=== PATIENT | male | born 1955 | race Caucasian/White ===

== ENCOUNTER → 2016-08-03 | Outpatient (CLI) | payer BC ==
[~2016-08-03] MED LIST: AML5T PO; LISI-646 PO; LISIPOW PO; PANT40TA2 PO; TOPROL XL PO
[2016-08-03 07:32] LABS: Albumin 3.7 g/dL (3.4-5.0); BUN/Creatinine Ratio 15.5; Bilirubin, Total 0.6 mg/dL (0.2-1.0); Calcium 8.9 mg/dL (8.5-10.1); Total Protein 7.6 g/dL (6.4-8.2)
== END | disposition home or self-care (01) ==
LOC: LAB 06:55
DX: E78.4 Other hyperlipidemia (principal)
CPT/HCPCS: 36415; 80053; 80061

== ENCOUNTER → 2016-08-03 | Outpatient (CLI) | payer BC | END | disposition home or self-care (01) | LOC: LAB 10:00 | PROVIDERS: ATTEND Physician Assistant | DX: D22.5 Melanocytic nevi of trunk (principal) ==

== ENCOUNTER → 2016-11-30 | Outpatient (CLI) | payer BC ==
[2016-11-30 08:56] LABS: Basophils # (auto) 0 uL; Basophils % (auto) 0.3 % (0.0-2.0); Eosinophils # (auto) 0.1 uL; Eosinophils % (auto) 1.8 % (0.0-7.0); Hematocrit 47.9 % (41.0-53.0); Hemoglobin 16.7 g/dL (13.5-17.5); Lymphocytes # (auto) 1.6 uL; Lymphocytes % (auto) 32.8 % (10.0-50.0); Mean Corpuscular Hemoglobin 29.2 pg (28.0-32.0); Mean Corpuscular Hgb Conc. 34.8 g/dL (32.0-36.0); Mean Corpuscular Volume 83.9 fL (80.0-100.0); Mean Platelet Volume 6.9 fL (7.4-10.4); Monocytes # (auto) 0.4 uL; Monocytes % (auto) 7.8 % (0.0-12.0); Neutrophils # (auto) 2.9 uL; Neutrophils % (auto) 57.3 % (37.0-80.0); Platelet Count (auto) 280 10^3/uL (140-450); Red Cell Distribution Width 14.1 % (11.6-16.0)
[2016-11-30 09:12] LABS: Urine Bilirubin Negative (Negative); Urine Color Yellow (Yellow); Urine Glucose Normal (Normal); Urine Ketone Negative (Negative); Urine Nitrite Negative (Negative); Urine RBC 2 /hpf (0 - 3); Urine Urobilinogen Normal (Negative); Urine pH 5.5 (5.0-8.0)
[2016-11-30 09:26] LABS: Urine Blood 1+ /uL (Negative)
[2016-11-30 10:28] LABS: Albumin 3.8 g/dL (3.4-5.0); BUN/Creatinine Ratio 16.8; Bilirubin, Total 0.4 mg/dL (0.2-1.0); Calcium 9.1 mg/dL (8.5-10.1); Potassium 3.7 mmol/L (3.5-5.1); Total Protein 7.6 g/dL (6.4-8.2)
== END | disposition home or self-care (01) ==
LOC: LAB 08:26
DX: I10 Essential (primary) hypertension (principal); R73.09 Other abnormal glucose; N40.0 Benign prostatic hyperplasia without lower urinary tract symptoms; Z86.010 Personal history of colon polyps
CPT/HCPCS: 36415; 80053; 80061; 81001; 83036; 84153; 84443; 85025

== ENCOUNTER → 2016-12-03 | Outpatient (CLI) | payer BC | END | disposition home or self-care (01) | LOC: LAB 09:38 | DX: R73.09 Other abnormal glucose (principal); I10 Essential (primary) hypertension; N40.0 Benign prostatic hyperplasia without lower urinary tract symptoms; Z86.010 Personal history of colon polyps | CPT/HCPCS: 82270 ==

== ENCOUNTER 2017-06-16 17:33 | Inpatient (IN) | payer BC ==
[~2017-06-16] VITALS: Ht 190.5 cm; Wt 124.8 kg
[2017-06-16] MEDS ORDERED: NITROGLYCERIN 0.4 MG SL TAB SL ONE ×2 (17:39→18:00)
[2017-06-16] MEDS ORDERED: LORazepam 0.5 MG TAB ONE (17:40)
[2017-06-16] MEDS ORDERED: ASPirin 325 MG TAB ONE (17:40)
[2017-06-16] MEDS ORDERED: SODIUM CHLORIDE 0.9% 1,000 ML IV ONE (17:49)
[2017-06-16] MEDS ORDERED: ASPirin 325 MG TAB PO ONE (18:00)
[2017-06-16] MEDS ORDERED: LORazepam 0.5 MG TAB PO ONE (18:00)
[2017-06-16] MEDS ORDERED: ONDANSETRON HCL 4 MG/2 ML VIAL IV ONE (18:00)
[2017-06-16] MEDS ORDERED: MORPHINE SULFATE 4 MG/ML SYRG IV ONE (18:00)
[2017-06-16 18:49] LABS: INR 0.98 (0.9-1.15); Partial Thromboplastin Time 24.6 sec (22.64-33.71); Prothrombin Time 10.7 sec (9.37-12.3)
[2017-06-16 18:54] LABS: BUN/Creatinine Ratio 14.4; Bilirubin, Total 0.5 mg/dL (0.2-1.0); Calcium 8.9 mg/dL (8.5-10.1); Potassium 3.7 mmol/L (3.5-5.1); Total Protein 8.3 g/dL (6.4-8.2)
[2017-06-16 19:21] LABS: Basophils # (auto) 0 uL; Basophils % (auto) 0.5 % (0.0-2.0); Eosinophils # (auto) 0.1 uL; Hemoglobin 14.8 g/dL (13.5-17.5); Lymphocytes # (auto) 1.3 uL; Mean Corpuscular Hgb Conc. 33.9 g/dL (32.0-36.0); Monocytes # (auto) 0.5 uL
[2017-06-16 19:41] LABS: Hematocrit 43.6 % (41.0-53.0); Mean Corpuscular Volume 85.5 fL (80.0-100.0); Monocytes % (auto) 7.8 % (0.0-12.0); Neutrophils % (auto) 67.7 % (37.0-80.0); Nucleated Red Blood Cells % 0.4 %; Platelet Count (auto) 206 10^3/uL (140-450); Red Cell Distribution Width 14.4 % (11.8-14.3)
[2017-06-16] MEDS ORDERED: IOHEXOL 350 MG/ML 100ML IJ ONE (20:04)
[2017-06-16] MEDS ORDERED: LISI-646 PO (20:11)
[2017-06-16] MEDS ORDERED: TRIA75TA55 PO (20:13)
[2017-06-16] MEDS ORDERED: SIMV-8 PO (20:13)
[2017-06-16] MEDS ORDERED: KETOROLAC TROMETH 30 MG/ML 1ML VIAL IV ONE (20:15)
[2017-06-16] MEDS ORDERED: NITROGLYCERIN 0.4 MG SL TAB SL PRN (20:15)
[2017-06-16] MEDS ORDERED: MORPHINE SULFATE 4 MG/ML SYRG IV PRN (20:15)
[2017-06-16] MEDS ORDERED: METO25TA3 PO (20:21)
[2017-06-16 20:34] LABS: Urine Bacteria NONE SEEN /hpf (None Seen); Urine Blood TRACE /uL (Negative); Urine Specific Gravity 1.025 (1.001-1.035); Urine WBC 2 /hpf (0 - 3)
[2017-06-16] MEDS ORDERED: LISINOPRIL 20 MG TAB PO ONE (21:45)
[2017-06-16] MEDS ORDERED: amLODIPine BESYLATE 5 MG TAB PO ONE (21:45)
[2017-06-16] MEDS ORDERED: METOPROLOL SUCCINATE XL 50 MG TAB PO ONE (21:45)
[2017-06-16 22:00] VITALS: BP 136/87
[2017-06-16] MEDS: ATORVASTATIN 20 MG TAB PO SCH (23:00)
[2017-06-16] MEDS: FAMOTIDINE 20 MG TAB PO SCH (23:00)
[2017-06-17] MEDS ORDERED: MORPHINE SULF INJ 2 MG/ML SYRINGE 1ML IV PRN (02:30)
[2017-06-17 03:05] VITALS: BP 136/87
[2017-06-17 05:00] VITALS: BP 139/85
[2017-06-17] MEDS ORDERED: MORPHINE SULFATE 4 MG/ML SYRG IV PRN (07:00)
[2017-06-17 09:00] VITALS: BP 139/85
[2017-06-17] MEDS: METOPROLOL SUCCINATE XL 50 MG TAB PO SCH (10:00)
[2017-06-17] MEDS: LISINOPRIL 20 MG TAB PO SCH (10:37)
[2017-06-17] MEDS: FAMOTIDINE 20 MG TAB PO SCH ×2 (10:38→21:45)
[2017-06-17] MEDS: TRIAMTERENE/HCTZ 75/50MG TABLET PO SCH (10:38)
[2017-06-17] MEDS: amLODIPine BESYLATE 5 MG TAB PO SCH (10:38)
[2017-06-17] MEDS: PANTOPRAZOLE 40 MG TAB PO SCH (10:38)
[2017-06-17] MEDS: KETOROLAC TROMETH 30 MG/ML 1ML VIAL IV PRN ×2 (12:41→17:56)
[2017-06-17 13:00] VITALS: BP 133/96
[2017-06-17 17:00] VITALS: BP 135/85
[2017-06-17] MEDS: COLCHICINE 0.6 MG CAP PO SCH (21:45)
[2017-06-17] MEDS: ATORVASTATIN 20 MG TAB PO SCH (21:45)
[2017-06-17 22:00] VITALS: BP 121/82
[2017-06-18 05:00] VITALS: BP 117/82
[2017-06-18 09:00] VITALS: BP 124/91
[2017-06-18] MEDS: COLCHICINE 0.6 MG CAP PO SCH (09:57)
[2017-06-18] MEDS: FAMOTIDINE 20 MG TAB PO SCH (09:58)
[2017-06-18] MEDS: PANTOPRAZOLE 40 MG TAB PO SCH (09:58)
[2017-06-18] MEDS: amLODIPine BESYLATE 5 MG TAB PO SCH (09:58)
[2017-06-18] MEDS: TRIAMTERENE/HCTZ 75/50MG TABLET PO SCH (09:58)
[2017-06-18] MEDS: METOPROLOL SUCCINATE XL 50 MG TAB PO SCH (09:59)
[2017-06-18] MEDS: LISINOPRIL 20 MG TAB PO SCH (09:59)
[2017-06-18 12:00] VITALS: BP 135/89
[2017-06-18 15:16] VITALS: BP 124/91
== END 2017-06-18 16:25 | disposition home or self-care (01) | DRG 315 ==
LOC: ER 17:34 → TELE 17:35 → TELE-EAST 21:20
PROVIDERS: ADMIT Internal Medicine; ATTEND Internal Medicine
PROC: 5A09357 Assistance with Respiratory Ventilation, Less than 24 Consecutive Hours, Continuous Positive Airway Pressure (ICD-10-PCS; principal; 2017-06-17)
PROC: 5A09357 Assistance with Respiratory Ventilation, Less than 24 Consecutive Hours, Continuous Positive Airway Pressure (ICD-10-PCS; 2017-06-18)
DX: I51.4 Myocarditis, unspecified (principal); I31.9 Disease of pericardium, unspecified; I10 Essential (primary) hypertension; E78.5 Hyperlipidemia, unspecified; K21.9 Gastro-esophageal reflux disease without esophagitis; M19.90 Unspecified osteoarthritis, unspecified site; Z82.49 Family history of ischemic heart disease and other diseases of the circulatory system; Z88.1 Allergy status to other antibiotic agents; Z88.2 Allergy status to sulfonamides; Z90.5 Acquired absence of kidney
CPT/HCPCS: 36415; 70450; 71010; 71260; 78226; 80053; 81001; 82550; 83880; 84484; 85025; 85379; 85610; 85652; 85730; 93306; 94660; 96361; 96374; 96375; J1885; J2405

== ENCOUNTER → 2017-09-27 | Outpatient (CLI) | payer BC ==
[~2017-09-27] VITALS: Ht 190.5 cm; Wt 122.5 kg
[~2017-09-27] MED LIST changes: -LISIPOW PO; +METO25TA3 PO; +SIMV-8 PO; -TOPROL XL PO; +TRIA75TA55 PO
== END | disposition home or self-care (01) ==
LOC: Rad HDHVI 10:27
PROVIDERS: ATTEND Internal Medicine Cardiovascular Disease
DX: R07.89 Other chest pain (principal); I31.9 Disease of pericardium, unspecified; I10 Essential (primary) hypertension; E78.5 Hyperlipidemia, unspecified
CPT/HCPCS: 78452; 93017; 96374; A9500

== ENCOUNTER 2018-05-23 08:00 | Day surgery (SDC) | payer BC ==
[2018-05-20 10:31] LABS: Basophils # (auto) 0 uL; Basophils % (auto) 0.5 % (0.0-2.0); Eosinophils # (auto) 0.1 uL; Eosinophils % (auto) 2.9 % (0.0-7.0); Hematocrit 49.1 % (41.0-53.0); Hemoglobin 17.1 g/dL (13.5-17.5); Lymphocytes # (auto) 1.5 uL; Lymphocytes % (auto) 31.4 % (10.0-50.0); Mean Corpuscular Hemoglobin 29.5 pg (28.0-32.0); Mean Corpuscular Hgb Conc. 34.8 g/dL (32.0-36.0); Mean Corpuscular Volume 84.9 fL (80.0-100.0); Monocytes # (auto) 0.4 uL; Monocytes % (auto) 7.4 % (0.0-12.0); Neutrophils # (auto) 2.8 uL; Neutrophils % (auto) 57.8 % (37.0-80.0); Nucleated Red Blood Cells % 0.1 %; Platelet Count (auto) 204 10^3/uL (140-450); Red Blood Cells 5.79 10^6/uL (4.5-5.90); Red Cell Distribution Width 14.2 % (11.8-14.3); White Blood Cell 4.8 10^3/uL (4.4-10.8)
[2018-05-20 10:40] LABS: INR 0.95 (0.9-1.15); Partial Thromboplastin Time 27.5 sec (23.78-33.04); Prothrombin Time 10.2 sec (9.27-12.13)
[~2018-05-23] VITALS: Ht 190.5 cm; Wt 122.5 kg
[~2018-05-23 08:00] MED LIST changes: +AZIL40TA3 PO; -LISI-646 PO; -METO25TA3 PO; +METO25TA4 PO; -TRIA75TA55 PO
[2018-05-23] MEDS ORDERED: NALOXONE HCL 0.4 MG/ML VIAL ONE (08:28)
[2018-05-23] MEDS ORDERED: SODIUM CHLORIDE LOCK 10 ML ONE (08:29)
[2018-05-23] MEDS ORDERED: diphenhdrAMINE 50mg/ml (500mg/10ml VIAL) ONE (08:29)
[2018-05-23] MEDS ORDERED: LIDOCAINE VISCOUS 2% 15ML UD ONE (08:30)
[2018-05-23] MEDS: MIDAZOLAM HCL 5 MG/ML-1ML VIAL ONE ×3 (09:15→09:24)
[2018-05-23] MEDS: fentaNYL CITRATE 100 MCG/2 ML VL ONE ×3 (09:15→09:24)
[2018-05-23 10:14] VITALS: BP 124/73
== END 2018-05-23 10:29 | disposition home or self-care (01) ==
LOC: GI 08:00
PROVIDERS: ATTEND Internal Medicine Gastroenterology
DX: K57.30 Diverticulosis of large intestine without perforation or abscess without bleeding (principal); K64.8 Other hemorrhoids; K29.50 Unspecified chronic gastritis without bleeding; R13.10 Dysphagia, unspecified; K21.9 Gastro-esophageal reflux disease without esophagitis; K44.9 Diaphragmatic hernia without obstruction or gangrene; E66.9 Obesity, unspecified; Z84.89 Family history of other specified conditions; I10 Essential (primary) hypertension; Z88.2 Allergy status to sulfonamides; Z88.1 Allergy status to other antibiotic agents; Z68.33 Body mass index [BMI] 33.0-33.9, adult; Z98.890 Other specified postprocedural states; Z82.49 Family history of ischemic heart disease and other diseases of the circulatory system; Z81.8 Family history of other mental and behavioral disorders; Z82.61 Family history of arthritis; Z79.899 Other long term (current) drug therapy; Z79.2 Long term (current) use of antibiotics
CPT/HCPCS: 36415; 43239; 43450; 45378; 85025; 85610; 85730; 99152; A6257; J1200; J2250; J3010; J7030

== ENCOUNTER → 2018-09-13 | Outpatient (CLI) | payer BC ==
[2018-09-13 09:20] LABS: Urine Bacteria NONE SEEN /hpf (None Seen); Urine Blood 2+ /uL (Negative); Urine Specific Gravity 1.019 (1.001-1.035); Urine WBC 1 /hpf (0 - 3)
[2018-09-13 09:21] LABS: Basophils # (auto) 0 uL; Basophils % (auto) 0.2 % (0.0-2.0); Eosinophils # (auto) 0.1 uL; Eosinophils % (auto) 2.9 % (0.0-7.0); Hematocrit 49.1 % (41.0-53.0); Hemoglobin 16.8 g/dL (13.5-17.5); Lymphocytes # (auto) 1.7 uL; Lymphocytes % (auto) 34.1 % (10.0-50.0); Mean Corpuscular Hemoglobin 29.4 pg (28.0-32.0); Mean Corpuscular Hgb Conc. 34.2 g/dL (32.0-36.0); Mean Corpuscular Volume 85.9 fL (80.0-100.0); Monocytes # (auto) 0.4 uL; Monocytes % (auto) 8.1 % (0.0-12.0); Neutrophils # (auto) 2.7 uL; Neutrophils % (auto) 54.7 % (37.0-80.0); Nucleated Red Blood Cells % 0.1 %; Platelet Count (auto) 204 10^3/uL (140-450); Red Blood Cells 5.72 10^6/uL (4.5-5.90)
[2018-09-13 09:25] LABS: Calcium 9.1 mg/dL (8.5-10.1); Potassium 3.3 mmol/L (3.5-5.1)
[2018-09-13 09:29] LABS: BUN/Creatinine Ratio 16.5; Bilirubin, Total 0.7 mg/dL (0.2-1.0); Total Protein 7.8 g/dL (6.4-8.2)
== END | disposition home or self-care (01) ==
LOC: LAB 08:39
PROVIDERS: ATTEND Family Medicine
DX: E78.2 Mixed hyperlipidemia (principal); I10 Essential (primary) hypertension; K21.9 Gastro-esophageal reflux disease without esophagitis; E66.09 Other obesity due to excess calories
CPT/HCPCS: 36415; 80053; 80061; 81001; 84153; 85025

== ENCOUNTER → 2018-11-11 | Day surgery (SDC) | payer BC ==
[2018-11-08 11:37] LABS: Basophils # (auto) 0 uL; Basophils % (auto) 0.5 % (0.0-2.0); Eosinophils # (auto) 0.1 uL; Eosinophils % (auto) 2.3 % (0.0-7.0); Hematocrit 48.2 % (41.0-53.0); Hemoglobin 16.8 g/dL (13.5-17.5); Lymphocytes # (auto) 1.5 uL; Lymphocytes % (auto) 30.6 % (10.0-50.0); Mean Corpuscular Hemoglobin 29.5 pg (28.0-32.0); Mean Corpuscular Hgb Conc. 34.9 g/dL (32.0-36.0); Mean Corpuscular Volume 84.5 fL (80.0-100.0); Monocytes # (auto) 0.4 uL; Monocytes % (auto) 8.6 % (0.0-12.0); Neutrophils # (auto) 2.9 uL; Nucleated Red Blood Cells % 0.4 %; Platelet Count (auto) 236 10^3/uL (140-450); Red Cell Distribution Width 14.2 % (11.8-14.3)
[2018-11-08 11:40] LABS: Urine Blood 2+ /uL (Negative); Urine Specific Gravity 1.019 (1.001-1.035)
[2018-11-08 11:49] LABS: INR 0.99 (0.9-1.15); Partial Thromboplastin Time 25.1 sec (23.64-32.05); Prothrombin Time 10.7 sec (9.06-12.60)
[2018-11-08 11:55] LABS: Albumin 3.9 g/dL (3.4-5.0); BUN/Creatinine Ratio 15.8; Calcium 9.3 mg/dL (8.5-10.1); Potassium 3.5 mmol/L (3.5-5.1)
[2018-11-08 11:59] LABS: Bilirubin, Total 0.6 mg/dL (0.2-1.0); Total Protein 7.8 g/dL (6.4-8.2)
[~2018-11-11] VITALS: Ht 190.5 cm; Wt 120.2 kg
[~2018-11-11] MED LIST changes: +BUPIVACAINE 0.25% INJ 50ML VIAL ONE; +BUPIVACAINE W/ EPINEPH 0.25% INJ 50ML MDV ONE; +HYDROmorphone HCL 2 MG/ML VL IV ONE; +HYDROmorphone HCL 2 MG/ML VL ONE; +KETOROLAC TROMETH 30 MG/ML 1ML VIAL IV ONE; +KETOROLAC TROMETH 30 MG/ML 1ML VIAL ONE; +MIDAZOLAM HCL 1MG/1ML-2 ML VIAL ONE; +MORPHINE SULF(PF) 0.5MG/ML 10ML VIAL ONE; +ONDANSETRON HCL 4 MG/2 ML VIAL IV ONE; +PROPOFOL 10 MG/ML 20 ML IV ONE; +ceFAZolin 1GM/50ML 50 ML IV ONE; +ePHEDrine SULFATE 50 MG/ML AMP IV PRN; +fentaNYL CITRATE 100 MCG/2 ML VL IV ONE; +fentaNYL CITRATE 100 MCG/2 ML VL ONE; +hydrALAZINE HCL 20 MG/ML VL IV PRN
[2018-11-11] MEDS: fentaNYL CITRATE 100 MCG/2 ML VL IV PRN ×2 (09:43→09:55)
[2018-11-11] MEDS: HYDROmorphone HCL 2 MG/ML VL IV PRN ×4 (10:10→12:19)
[2018-11-11 13:17] VITALS: BP 128/86
== END | disposition home or self-care (01) ==
LOC: SUR 06:16
PROVIDERS: ATTEND Orthopaedic Surgery
DX: S82.142A Displaced bicondylar fracture of left tibia, initial encounter for closed fracture (principal); S83.242A Other tear of medial meniscus, current injury, left knee, initial encounter; S83.282A Other tear of lateral meniscus, current injury, left knee, initial encounter; M65.862 Other synovitis and tenosynovitis, left lower leg; M94.262 Chondromalacia, left knee; X58.XXXA Exposure to other specified factors, initial encounter; Y93.89 Activity, other specified; Y92.89 Other specified places as the place of occurrence of the external cause; Y99.8 Other external cause status; I10 Essential (primary) hypertension; Z88.1 Allergy status to other antibiotic agents; Z88.2 Allergy status to sulfonamides; Z98.890 Other specified postprocedural states; Z79.899 Other long term (current) drug therapy
CPT/HCPCS: 29855; 29876; 29880; 36415; 73560; 80053; 81003; 85025; 85610; 85730; C1713; J0690; J1170; J1885; J2250; J2270; J2405; J2704; J3010; J3490; 76001

== ENCOUNTER → 2019-04-19 | Outpatient (CLI) | payer BC ==
[~2019-04-19] MED LIST changes: -BUPIVACAINE 0.25% INJ 50ML VIAL ONE; -BUPIVACAINE W/ EPINEPH 0.25% INJ 50ML MDV ONE; -HYDROmorphone HCL 2 MG/ML VL IV ONE; -HYDROmorphone HCL 2 MG/ML VL ONE; -KETOROLAC TROMETH 30 MG/ML 1ML VIAL IV ONE; -KETOROLAC TROMETH 30 MG/ML 1ML VIAL ONE; +METO25TA36 PO; -METO25TA4 PO; -MIDAZOLAM HCL 1MG/1ML-2 ML VIAL ONE; -MORPHINE SULF(PF) 0.5MG/ML 10ML VIAL ONE; -ONDANSETRON HCL 4 MG/2 ML VIAL IV ONE; -PROPOFOL 10 MG/ML 20 ML IV ONE; -ceFAZolin 1GM/50ML 50 ML IV ONE; -ePHEDrine SULFATE 50 MG/ML AMP IV PRN; -fentaNYL CITRATE 100 MCG/2 ML VL IV ONE; -fentaNYL CITRATE 100 MCG/2 ML VL ONE; -hydrALAZINE HCL 20 MG/ML VL IV PRN
[2019-04-19 08:50] LABS: Albumin 3.8 g/dL (3.4-5.0); BUN/Creatinine Ratio 16.9; Phosphorus 2.5 mg/dL (2.5-4.90); Potassium 3.4 mmol/L (3.5-5.1)
[2019-04-19 08:57] LABS: Calcium 8.7 mg/dL (8.5-10.1)
== END | disposition home or self-care (01) ==
LOC: LAB 08:13
PROVIDERS: ATTEND Family Medicine
DX: Z01.812 Encounter for preprocedural laboratory examination (principal); N28.89 Other specified disorders of kidney and ureter
CPT/HCPCS: 36415; 80069

== ENCOUNTER → 2019-04-27 | Outpatient (CLI) | payer BC | END | disposition home or self-care (01) | LOC: LAB 13:19 | PROVIDERS: ATTEND Urology | DX: R97.20 Elevated prostate specific antigen [PSA] (principal); Z88.1 Allergy status to other antibiotic agents | CPT/HCPCS: 84153 ==

== ENCOUNTER → 2019-06-08 | Outpatient (CLI) | payer BC ==
[~2019-06-08] VITALS: Ht 190.5 cm; Wt 117.9 kg
[2019-06-08 13:18] LABS: Basophils # (auto) 0 uL; Basophils % (auto) 0.5 % (0.0-2.0); Eosinophils # (auto) 0.1 uL; Hematocrit 46.5 % (41.0-53.0); Hemoglobin 15.9 g/dL (13.5-17.5); Lymphocytes # (auto) 1.5 uL; Lymphocytes % (auto) 30.6 % (10.0-50.0); Mean Corpuscular Hemoglobin 29.6 pg (28.0-32.0); Mean Corpuscular Hgb Conc. 34.3 g/dL (32.0-36.0); Mean Corpuscular Volume 86.3 fL (80.0-100.0); Monocytes # (auto) 0.4 uL; Monocytes % (auto) 8.1 % (0.0-12.0); Neutrophils # (auto) 2.8 uL; Neutrophils % (auto) 58.8 % (37.0-80.0); Nucleated Red Blood Cells % 0.2 %; Platelet Count (auto) 189 10^3/uL (140-450); Red Blood Cells 5.39 10^6/uL (4.5-5.90); Red Cell Distribution Width 14.1 % (11.8-14.3); White Blood Cell 4.8 10^3/uL (4.4-10.8)
[2019-06-08 13:21] LABS: Urine Blood 1+ /uL (Negative); Urine Specific Gravity 1.023 (1.001-1.035)
[2019-06-08 13:40] LABS: Albumin 3.7 g/dL (3.4-5.0); Calcium 8.6 mg/dL (8.5-10.1); Potassium 3.5 mmol/L (3.5-5.1)
[2019-06-08 13:45] LABS: BUN/Creatinine Ratio 15.8; Bilirubin, Total 0.5 mg/dL (0.2-1.0); Total Protein 7.6 g/dL (6.4-8.2)
[2019-06-08 13:47] LABS: Prostate Specific Antigen 1.09 ng/mL (0.0-4.0)
[2019-06-08 13:58] LABS: Free T4 (Free Thyroxine) 0.97 ng/dL (0.89-1.76)
== END | disposition home or self-care (01) ==
LOC: Rad HDHVI 08:05
PROVIDERS: ATTEND Internal Medicine Cardiovascular Disease
DX: Z00.00 Encounter for general adult medical examination without abnormal findings (principal); E03.9 Hypothyroidism, unspecified; K90.9 Intestinal malabsorption, unspecified; C61 Malignant neoplasm of prostate; E29.1 Testicular hypofunction; N39.0 Urinary tract infection, site not specified; D51.9 Vitamin B12 deficiency anemia, unspecified; R10.9 Unspecified abdominal pain; Z79.899 Other long term (current) drug therapy
CPT/HCPCS: 36415; 78452; 80053; 80061; 81003; 82306; 82607; 83036; 84153; 84403; 84439; 84443; 85025; 93017; 96374; A9500

== ENCOUNTER → 2019-08-18 | Outpatient (CLI) | payer BC ==
[2019-08-18 12:30] LABS: BUN/Creatinine Ratio 15.3; Calcium 9.3 mg/dL (8.5-10.1); Potassium 3.5 mmol/L (3.5-5.1)
== END | disposition home or self-care (01) ==
LOC: LAB 11:59
PROVIDERS: ATTEND Family Medicine
DX: D41.02 Neoplasm of uncertain behavior of left kidney (principal)
CPT/HCPCS: 36415; 80048

== ENCOUNTER 2019-09-27 06:13 | Day surgery (SDC) | payer BC ==
[2019-09-25 09:58] LABS: Basophils # (auto) 0 10 ^3/uL (0-0.2); Basophils % (auto) 0.6 % (0.0-2.0); Eosinophils # (auto) 0.2 10 ^3/uL (0-0.8); Eosinophils % (auto) 2.9 % (0.0-7.0); Hematocrit 47.8 % (41.0-53.0); Hemoglobin 16.4 g/dL (13.5-17.5); Lymphocytes # (auto) 1.7 10 ^3/uL (0.4-5.4); Lymphocytes % (auto) 30.4 % (10.0-50.0); Mean Corpuscular Hemoglobin 29.5 pg (28.0-32.0); Mean Corpuscular Hgb Conc. 34.2 g/dL (32.0-36.0); Mean Corpuscular Volume 86.3 fL (80.0-100.0); Monocytes # (auto) 0.4 10 ^3/uL (0-1.3); Neutrophils # (auto) 3.2 10 ^3/uL (1.6-8.6); Neutrophils % (auto) 58.1 % (37.0-80.0); Nucleated Red Blood Cells % 0.4 %; Platelet Count (auto) 204 10^3/uL (140-450); Red Blood Cells 5.54 10^6/uL (4.5-5.90); Red Cell Distribution Width 14.1 % (11.8-14.3); White Blood Cell 5.5 10^3/uL (4.4-10.8)
[2019-09-25 10:13] LABS: Urine Bacteria NONE SEEN /hpf (None Seen); Urine Blood 2+ /uL (Negative); Urine Budding Yeast OCCASIONAL /hpf (None Seen); Urine WBC 1 /hpf (0 - 3)
[2019-09-25 10:25] LABS: Potassium 3.6 mmol/L (3.5-5.1)
[2019-09-25 10:27] LABS: INR 1.06 (0.9-1.15); Partial Thromboplastin Time 26.6 sec (23.64-32.05)
[2019-09-25 10:34] LABS: Albumin 3.8 g/dL (3.4-5.0); BUN/Creatinine Ratio 15.2; Bilirubin, Total 0.6 mg/dL (0.2-1.0); Calcium 9.7 mg/dL (8.5-10.1); Total Protein 7.8 g/dL (6.4-8.2)
[~2019-09-27] VITALS: Ht 190.5 cm; Wt 120.2 kg
[2019-09-27] MEDS ORDERED: LIDOCAINE 1% HCL (LOCAL ANESTH.) INJ 20ML MDV ONE ×3 (07:06→08:08)
[2019-09-27] MEDS ORDERED: ceFAZolin 1GM/50ML 50 ML IV ONE (07:08)
[2019-09-27] MEDS ORDERED: SUCCINYLCHOLINE CHLORIDE 20 MG/ML 10ML VIAL IV ONE (07:14)
[2019-09-27] MEDS ORDERED: ONDANSETRON HCL 4 MG/2 ML VIAL ONE (07:23)
[2019-09-27] MEDS ORDERED: PROPOFOL 10 MG/ML 20 ML IV ONE (07:23)
[2019-09-27] MEDS ORDERED: SODIUM CHLORIDE LOCK 10 ML ONE (07:23)
[2019-09-27] MEDS ORDERED: fentaNYL CITRATE 100 MCG/2 ML VL ONE (07:23)
[2019-09-27] MEDS ORDERED: MIDAZOLAM HCL 1MG/1ML-2 ML VIAL ONE (07:23)
[2019-09-27] MEDS ORDERED: fentaNYL CITRATE 100 MCG/2 ML VL IV PRN (07:45)
[2019-09-27] MEDS ORDERED: MORPHINE SULFATE 4 MG/ML SYR/VIAL IV PRN (07:45)
[2019-09-27] MEDS ORDERED: METOCLOPRAMIDE HCL 5MG/ml INJ 2ml VIAL IV PRN (07:45)
[2019-09-27] MEDS: HYDROmorphone HCL 2 MG/ML VL IV PRN ×2 (09:04→09:16)
[2019-09-27 09:37] VITALS: BP 131/77
== END 2019-09-27 09:56 | disposition home or self-care (01) ==
LOC: SUR 06:13
PROVIDERS: ATTEND Surgery
DX: C43.61 Malignant melanoma of right upper limb, including shoulder (principal); I10 Essential (primary) hypertension; E66.01 Morbid (severe) obesity due to excess calories; Z88.8 Allergy status to other drugs, medicaments and biological substances; Z88.1 Allergy status to other antibiotic agents; Z98.890 Other specified postprocedural states; Z68.33 Body mass index [BMI] 33.0-33.9, adult
CPT/HCPCS: 11606; 12032; 36415; 80053; 81001; 85025; 85610; 85730; 88305; J0330; J0690; J1170; J2001; J2250; J2405; J2704; J2765; J3010; A4565

== ENCOUNTER → 2019-11-16 | Outpatient (CLI) | payer BC | END | disposition home or self-care (01) | LOC: LAB 06:37 | PROVIDERS: ATTEND Nurse Practitioner Family | DX: Z03.818 Encounter for observation for suspected exposure to other biological agents ruled out (principal) ==

== ENCOUNTER 2020-02-23 08:24 | Inpatient (IN) | payer BC ==
[2020-02-16 10:30] LABS: Basophils # (auto) 0.1 10 ^3/uL (0-0.2); Basophils % (auto) 0.9 % (0.0-2.0); Eosinophils # (auto) 0.1 10 ^3/uL (0-0.8); Eosinophils % (auto) 1.4 % (0.0-7.0); Hematocrit 47.3 % (41.0-53.0); Lymphocytes # (auto) 1.6 10 ^3/uL (0.4-5.4); Lymphocytes % (auto) 25.4 % (10.0-50.0); Mean Corpuscular Hemoglobin 28.9 pg (28.0-32.0); Mean Corpuscular Hgb Conc. 33.9 g/dL (32.0-36.0); Mean Corpuscular Volume 85.3 fL (80.0-100.0); Monocytes # (auto) 0.5 10 ^3/uL (0-1.3); Monocytes % (auto) 8.2 % (0.0-12.0); Neutrophils # (auto) 3.9 10 ^3/uL (1.6-8.6); Neutrophils % (auto) 64.1 % (37.0-80.0); Platelet Count (auto) 230 10^3/uL (140-450); Red Blood Cells 5.54 10^6/uL (4.5-5.90); Red Cell Distribution Width 14.2 % (11.8-14.3); White Blood Cell 6.1 10^3/uL (4.4-10.8)
[2020-02-16 10:41] LABS: Urine Bacteria NONE SEEN /hpf (None Seen); Urine Blood 1+ /uL (Negative); Urine WBC 13 /hpf (0 - 3)
[2020-02-16 10:44] LABS: INR 1.02 (0.9-1.15); Partial Thromboplastin Time 26.2 sec (23.0-31.2)
[2020-02-16 11:02] LABS: Albumin 3.8 g/dL (3.4-5.0); Calcium 9.2 mg/dL (8.5-10.1); Potassium 3.9 mmol/L (3.5-5.1)
[2020-02-16 11:05] LABS: BUN/Creatinine Ratio 13.3; Bilirubin, Total 0.6 mg/dL (0.2-1.0); Total Protein 7.8 g/dL (6.4-8.2)
[~2020-02-23] VITALS: Ht 190.5 cm; Wt 134.2 kg
[2020-02-23] VITALS (10 sets, daily range): BP systolic 112–133; BP diastolic 64–82
[2020-02-23] MEDS ORDERED: ceFAZolin 1GM/50ML 100 ML IV ONE (09:43)
[2020-02-23] MEDS ORDERED: TRANEXAMIC ACID 20 ML ONE (10:06)
[2020-02-23] MEDS ORDERED: BUPIVACAINE W/ EPINEPH 0.25% INJ 50ML MDV ONE (10:06)
[2020-02-23] MEDS ORDERED: VANCOMYCIN HCL 1000 MG VL ONE (10:08)
[2020-02-23] MEDS ORDERED: KETOROLAC TROMETH 30 MG/ML 1ML VIAL ONE (10:08)
[2020-02-23] MEDS ORDERED: TETRACAINE 1% INJ 2 ML VIAL IJ ONE (10:10)
[2020-02-23] MEDS ORDERED: MORPHINE SULF(PF) 0.5MG/ML 10ML VIAL ONE ×2 (10:22→10:59)
[2020-02-23] MEDS ORDERED: CELECOXIB 100 MG CAP ONE (10:38)
[2020-02-23] MEDS ORDERED: PREGABALIN CAPSULE 75 MG CAP ONE (10:38)
[2020-02-23] MEDS ORDERED: ACETAMINOPHEN IV 100 ML IV ONE (10:39)
[2020-02-23] MEDS ORDERED: MIDAZOLAM HCL 1MG/1ML-2 ML VIAL ONE (10:59)
[2020-02-23] MEDS ORDERED: fentaNYL CITRATE 100 MCG/2 ML VL ONE (10:59)
[2020-02-23] MEDS ORDERED: DexAMETHasone SOD PHOS 10MG/1ML VIAL INJ ONE (11:30)
[2020-02-23] MEDS ORDERED: PROPOFOL 10 MG/ML 20 ML IV ONE (12:06)
[2020-02-23] MEDS ORDERED: NALOXONE HCL 0.4 MG/ML VIAL IV PRN (14:00)
[2020-02-23] MEDS ORDERED: KETOROLAC TROMETH 30 MG/ML 1ML VIAL IV PRN (14:00)
[2020-02-23] MEDS ORDERED: HYDROmorphone HCL 2 MG/ML VL IV PRN (14:00)
[2020-02-23] MEDS ORDERED: ePHEDrine SULFATE 50 MG/ML AMP IV PRN (14:00)
[2020-02-23] MEDS ORDERED: DexAMETHasone SOD PHOS 10MG/1ML VIAL INJ IV PRN (14:00)
[2020-02-23] MEDS ORDERED: LABETALOL HCL 5 MG/ML 4ML SYRINGE IV PRN (14:00)
[2020-02-23] MEDS ORDERED: diphenhdrAMINE HCL 50 MG/1 ML VL IV PRN (14:00)
[2020-02-23] MEDS ORDERED: ONDANSETRON HCL 4 MG/2 ML VIAL IV PRN ×2 (14:00)
[2020-02-23] MEDS ORDERED: MIDAZOLAM HCL 1MG/1ML-2 ML VIAL IV PRN (14:00)
[2020-02-23] MEDS ORDERED: NALBUPHINE HCL 10 MG/1ml INJECTION SUBCUT ONE (14:00)
[2020-02-23] MEDS ORDERED: NITROGLYCERIN 0.4 MG SL TAB SL PRN (14:15)
[2020-02-23] MEDS ORDERED: BISACODYL 5 MG EC TAB PO PRN (14:15)
[2020-02-23] MEDS ORDERED: MORPHINE SULF INJ 2 MG/ML SYRINGE 1ML IV PRN (14:15)
[2020-02-23] MEDS: ceFAZolin 1GM/50ML 50 ML IV SCH ×2 (16:48→20:27)
[2020-02-23] MEDS: LACTATED RINGER'S 1,000 ML IV SCH (16:48)
--- NOTE | 2020-02-23 17:20 | NUR ---
Assessment Regarding social service consult for home health physical therapy, CPM and walker. Patient is a 64-year old male who is alert and oriented. Prior to admission patient lived home with his N[place]. Prior to admission patient could care for his own ADLs. Patient does not have medical equipment at this time. Per patient he will return home to his prior living arrangements post discharge and his will transport him home. Advised patient clinical information was faxed to [facility], [facility] and [facility] who are contracted with his medical group but not his health plan and they are unable to provide service. Provided patient with outpatient physical therapy information. Per patient he will do outpatient physical therapy. Informed patient clinical information was faxed to [facility] for the CPM and he will be able to take the one at bedside home. Informed clinical information was faxed to [facility] for the walker and it will be deliver to bedside. Informed patient he has a right to participate in all discharge planning. Patient verbalized understanding discharge plan. Clinical information was reviewed and approved by [facility] for the CMP and walker. Faxed clinical information to [facility]. Per Isabelle [facility]. Addendum: 02/23/20 at 1724 by WHITNEY KEARNEY Amended: Links added.
[2020-02-23] MEDS: KETOROLAC TROMETH 30 MG/ML 1ML VIAL IV SCH ×2 (17:33→23:56)
--- NOTE | 2020-02-23 19:30 | NUR ---
Opening Shift Note Assumed care of patient, awake and alert x4. No S/S of distress/SOB or pain. CPM machine to left leg set at 45 degrees, dressing to left knee is C/D/I. Thomas bag is draining yellow urine to gravity and hung below bladder. Call light is within reach, side rails up x2, bed is in the lowest position. Instructed on POC and to call for assist PRN, will continue to monitor for changes Q1hr and PRN.
[2020-02-23] MEDS: traMADol HCL 50 MG TAB PO PRN (19:48)
[2020-02-23] MEDS: DOCUSATE SOD 100 MG CAP PO SCH (22:00)
[2020-02-23] MEDS: SODIUM CHLOR 0.9% PF (SALINE LOCK) 10ML VIAL/SYR IV SCH (22:10)
[2020-02-23] MEDS: ATORVASTATIN 20 MG TAB PO SCH (22:10)
[2020-02-24] VITALS (23 sets, daily range): BP systolic 100–126; BP diastolic 54–89
[2020-02-24] MEDS: LACTATED RINGER'S 1,000 ML IV SCH ×2 (00:04→10:04)
--- NOTE | 2020-02-24 00:04 | NUR ---
PLACED PT ON CPAP UNIT, UNIT CONNECTED TO RED OUTLET AND O2 SOURCE, 2LPM BLEED IN. PLACED PT ON (M) MASK, NO BREAKDOWN OR REDNESS NOTED PRIOR TO PLACEMENT. WATER CHAMBER FILLED TO ADEQUATE WATER LEVEL. CONTINUOS POX AT BEDSIDE PER PROTOCOL. PROBE ON LEFT INDEX FINGER. RN AT BEDSIDE AND AWARE OF PLACEMENT. WILL CONTINUE TO MONITOR Q2H AND NEEDED.
--- NOTE | 2020-02-24 01:50 | NUR ---
Patient taken off of CPM machine, no complaints of pain. Call light is within reach, will continue to monitor.
[2020-02-24] MEDS: ceFAZolin 1GM/50ML 50 ML IV SCH (02:09)
[2020-02-24] MEDS: traMADol HCL 50 MG TAB PO PRN ×2 (03:37→09:48)
--- NOTE | 2020-02-24 06:10 | NUR ---
Respiratory note: WENT TO ROOM TO TAKE PATIENT OFF CPAP, RN TOOK PATIENT OFF CPAP .SPO2 94% ON ROOM AIR, NO DISTRESS NOTED. RN AT BEDSIDE.
[2020-02-24] MEDS: KETOROLAC TROMETH 30 MG/ML 1ML VIAL IV SCH ×4 (06:15→23:18)
[2020-02-24] MEDS: SODIUM CHLOR 0.9% PF (SALINE LOCK) 10ML VIAL/SYR IV SCH ×3 (06:15→21:21)
--- NOTE | 2020-02-24 07:30 | NUR ---
RECEIVED REPORT FROM NIGHT NURSE. PATIENT RESTING IN BED, NO DISTRESS NOTED. DENIES PAIN. CONTINUOUS PULSE OX CONNECTED. PATIENT ON 2L NC. WILL CONTINUE TO MONITOR.
[2020-02-24 08:01] LABS: Hematocrit 40.7 % (41.0-53.0)
[2020-02-24 08:07] LABS: Albumin 3.2 g/dL (3.4-5.0); Calcium 8.6 mg/dL (8.5-10.1); Potassium 3.6 mmol/L (3.5-5.1)
[2020-02-24 08:13] LABS: BUN/Creatinine Ratio 17.2; Bilirubin, Total 0.4 mg/dL (0.2-1.0); Total Protein 6.6 g/dL (6.4-8.2)
[2020-02-24] MEDS: ENOXAPARIN SOD 40 MG/0.4 ML SYRINGE SC SCH (09:46)
[2020-02-24] MEDS: DOCUSATE SOD 100 MG CAP PO SCH ×2 (09:46→21:21)
[2020-02-24] MEDS: METOPROLOL SUCCINATE XL 50 MG TAB PO SCH (09:47)
[2020-02-24] MEDS: amLODIPine BESYLATE 5 MG TAB PO SCH (09:48)
[2020-02-24] MEDS ORDERED: METOPROLOL SUCCINATE XL 50 MG TAB PO SCH (10:00)
[2020-02-24] MEDS ORDERED: PANTOPRAZOLE 40 MG TAB PO SCH (10:00)
[2020-02-24] MEDS: AZILSARTAN MEDOXOMIL CHLORTHAL PO SCH (10:00)
--- NOTE | 2020-02-24 10:10 | NUR ---
PT AT BEDSIDE. PATIENT UP AND SITTING IN A CHAIR.
--- NOTE | 2020-02-24 10:10 | NUR ---
PATIENT PLACED ON CPM MACHINE BY PT.
--- NOTE | 2020-02-24 10:42 | NUR ---
DOCTOR HEWITT AT BEDSIDE. POC DISCUSSED WITH PATIENT.
--- NOTE | 2020-02-24 11:00 | NUR ---
DRESSING CHANGE DRESSING TO LEFT KNEE CHANGED FOLLOWING DOCTOR'S ORDERS. OLD DRESSING REMOVED, DRY 4X4'S APPLIED. INCISION DRY, NO SIGNS OF DRAINAGE, ALEXANDRA INTACT. KNEE WRAPPED WITH BANDAGE. PATIENT TOLERATED IT WELL.
--- NOTE | 2020-02-24 11:32 | NUR ---
Thomas catheter dc'd Order to discontinue Thomas catheter. Thomas dc'd with clean technique following deflation of balloon. Patient tolerated well with no complaints of pain. Continue care.
--- NOTE | 2020-02-24 12:52 | NUR ---
CPM CPM MACHINE REMOVED FROM LEFT LEG. TOTAL 2.5 HRS ON.
--- NOTE | 2020-02-24 13:00 | NUR ---
BATHROOM PATIENT AMBULATED TO BATHROOM WITH WALKER. URINATED WITHOUT COMPLICATIONS, S/P ANTONIO CATHETER REMOVAL. WILL CONTINUE TO MONITOR.
[2020-02-24] MEDS: OXYCODONE W/ ACETAMINOPHEN 5/325MG TABLET PO PRN ×2 (14:47→22:52)
--- NOTE | 2020-02-24 15:20 | NUR ---
CPM CPM PLACED ON LEFT LEG.
[2020-02-24] MEDS: HYDROmorphone HCL 2 MG/ML VL IV PRN ×2 (16:29→18:47)
--- NOTE | 2020-02-24 19:43 | NUR ---
tOpening Shift Note Assumed care of patient, awake and alert. No S/S of distress/SOB or pain. Instructed on POC and to call for assist PRN, will continue to monitor for changes Q1hr and PRN.PATIENT IN BED WITH CPM ON. NO COMPLAINTS OF PAIN OR DISCOMFORT AT THIS TIME. WILL CHECK PATIENT EVERY HOUR.REFRESHMENTS OFFERED. CRANBERRY JUICE SERVED.
[2020-02-24] MEDS: ATORVASTATIN 20 MG TAB PO SCH (21:21)
[2020-02-25] MEDS: HYDROmorphone HCL 2 MG/ML VL IV PRN ×4 (00:08→16:36)
[2020-02-25 02:20] VITALS: BP 118/65
[2020-02-25 04:52] VITALS: BP 147/83
[2020-02-25 05:25] LABS: Hematocrit 41.1 % (41.0-53.0); Hemoglobin 13.8 g/dL (13.5-17.5)
[2020-02-25] MEDS: SODIUM CHLOR 0.9% PF (SALINE LOCK) 10ML VIAL/SYR IV SCH ×3 (05:37→22:23)
--- NOTE | 2020-02-25 06:45 | NUR ---
Closing Shift note. Patient resting comfortably. Vital signs are stable. No pain at this time. Will endorse care to day shift RN.
--- NOTE | 2020-02-25 07:30 | NUR ---
RECEIVED REPORT FROM NIGHT NURSE. PATIENT RESTING IN BED, NO DISTRESS NOTED. WILL CONTINUE TO MONITOR.
[2020-02-25] MEDS ORDERED: ALUM & MAG HYDROX-SIMETH LIQ(MAALOX) 30 ML GT PRN (08:30)
[2020-02-25] MEDS: OXYCODONE W/ ACETAMINOPHEN 5/325MG TABLET PO PRN (08:35)
[2020-02-25 09:00] VITALS: BP 115/78
[2020-02-25] MEDS: PANTOPRAZOLE 40 MG/10 ML VIAL INJ IV SCH (09:43)
[2020-02-25] MEDS: ENOXAPARIN SOD 40 MG/0.4 ML SYRINGE SC SCH (09:43)
[2020-02-25] MEDS: amLODIPine BESYLATE 5 MG TAB PO SCH (09:44)
[2020-02-25] MEDS: DOCUSATE SOD 100 MG CAP PO SCH ×2 (09:44→22:19)
[2020-02-25] MEDS: METOPROLOL SUCCINATE XL 50 MG TAB PO SCH (09:48)
[2020-02-25] MEDS: AZILSARTAN MEDOXOMIL CHLORTHAL PO SCH (09:48)
--- NOTE | 2020-02-25 10:00 | NUR ---
CPM PT PLACED PATIENT ON CPM TO LEFT LEG.
--- NOTE | 2020-02-25 10:00 | NUR ---
DRESSING CHANGE DRESSING TO LEFT KNEE CHANGED FOLLOWING DOCTOR'S ORDERS. DRY 4X4'S APPLIED. INCISION DRY, NO SIGNS OF DRAINAGE,ALEXANDRA INTACT. KNEE WRAPPED WITH BANDAGE. PATIENT TOLERATED IT WELL.
--- NOTE | 2020-02-25 11:02 | NUR ---
PATIENT COMPLAINING OF HEART BURN NOT BEING RELIEVED BY PROTONIX. PLACED CALL TO DR. HEWITT. ORDERS FOR GI CONSULT AND TROPONIN LAB DRAW OBTAINED, WILL PLACE AND CARRY OUT.
[2020-02-25] MEDS: ONDANSETRON HCL 4 MG/2 ML VIAL IV PRN (12:47)
--- NOTE | 2020-02-25 12:48 | NUR ---
CPM CPM REMOVED FROM LEFT LEG, TOTAL HOURS 2 HR 45 MIN. PATIENT RESTING IN BED.
[2020-02-25 13:00] VITALS: BP 125/63
--- NOTE | 2020-02-25 14:37 | NUR ---
DOCTOR Ryder DIALLO AT BEDSIDE. ORDERS RECEIVED, WILL PLACE AND CARRY OUT.
[2020-02-25] MEDS ORDERED: ALUM & MAG HYDROX-SIMETH LIQ(MAALOX) 30 ML PO ONE (15:00)
--- NOTE | 2020-02-25 15:40 | NUR ---
CPM PATIENT PLACED BACK ON CPM TO LEFT LEG.
[2020-02-25 16:56] VITALS: BP 102/66
--- NOTE | 2020-02-25 17:00 | NUR ---
PATIENT RESTING COMFORTABLY, HEART BURN/ INDIGESTION HAS RESOLVED. PATIENT REQUESTING TURKEY SANDWICH. TURKEY SANDWICH GIVEN. WILL CONTINUE TO MONITOR.
[2020-02-25] MEDS: SUCRALFATE 1 GM/10 ML ORAL SUSP PO SCH ×2 (17:30→22:19)
--- NOTE | 2020-02-25 18:41 | NUR ---
CPM PATIENT TAKEN OFF CPM MACHINE. TOTAL 3 HOURS. DAILY TOTAL 5 HR 40 MIN.
--- NOTE | 2020-02-25 18:44 | NUR ---
BATHROOM PATIENT AMBULATING TO THE RESTROOM WITH WALKER. STABLE/ STEADY GATE.
--- NOTE | 2020-02-25 19:15 | NUR ---
Opening Shift Note Assumed care of patient, awake and alert. No S/S of distress/SOB or pain. Insructed on POC and to call for assist PRN, will continue to monitor for changes Q1hr and PRN.
[2020-02-25 21:00] VITALS: BP 122/71
[2020-02-25] MEDS: traMADol HCL 50 MG TAB PO PRN (22:19)
[2020-02-25] MEDS: ATORVASTATIN 20 MG TAB PO SCH (22:20)
--- NOTE | 2020-02-25 23:35 | NUR ---
Placed CPM on left leg, able to tolerate it for 2 hours
[2020-02-26] MEDS: HYDROmorphone HCL 2 MG/ML VL IV PRN ×2 (02:05→05:22)
--- NOTE | 2020-02-26 02:05 | NUR ---
Patient stated that Tramadol worked for his pain for few hours, patient preferred Dilaudid at this time, will continue to monitor
[2020-02-26] MEDS: ONDANSETRON HCL 4 MG/2 ML VIAL IV PRN ×2 (02:13→21:00)
[2020-02-26 05:00] VITALS: BP 134/76
[2020-02-26 05:23] LABS: Hematocrit 39.4 % (41.0-53.0); Hemoglobin 13.2 g/dL (13.5-17.5)
--- NOTE | 2020-02-26 05:35 | NUR ---
WOUND CARE NOTE Dressing change performed with betadine and 4x4 gauze and secured with jose luis bandage to left knee incisional wound. Incisional wound dry and intact and bruno intact, no drainage.
[2020-02-26] MEDS: SODIUM CHLOR 0.9% PF (SALINE LOCK) 10ML VIAL/SYR IV SCH ×3 (06:26→20:59)
[2020-02-26] MEDS: SUCRALFATE 1 GM/10 ML ORAL SUSP PO SCH ×4 (06:26→20:59)
--- NOTE | 2020-02-26 06:51 | NUR ---
Closing Note. Endorsed patient to day shift RN. Patient resting comfortably awake alert and oriented. patients call canela with in reach bed in lowest position side rails up x2.
--- NOTE | 2020-02-26 08:00 | NUR ---
OPENING SHIFT NOTE ASSUMED CARE OF PATIENT AWAKE AND ALERT. NO S/S OF DISTRESS NOTED. PATIENT UPDATED ON POC FOR THE DAY AND ALL QUESTIONS ANSWERED. BED IS IN LOWEST, LOCKED POSITION WITH SIDE RAILS UP X2 AND CALL LIGHT WITHIN REACH. WILL CONTINUE TO MONITOR Q1H AND PRN.
[2020-02-26 08:53] VITALS: BP 111/70
[2020-02-26] MEDS: HYDROcodone-ACET 5/325MG TAB PO PRN ×2 (09:21→11:08)
[2020-02-26] MEDS: DOCUSATE SOD 100 MG CAP PO SCH ×2 (09:24→20:59)
[2020-02-26] MEDS: AZILSARTAN MEDOXOMIL CHLORTHAL PO SCH (09:24)
[2020-02-26] MEDS: PANTOPRAZOLE 40 MG/10 ML VIAL INJ IV SCH (09:24)
[2020-02-26] MEDS: METOPROLOL SUCCINATE XL 50 MG TAB PO SCH (09:25)
[2020-02-26] MEDS: ENOXAPARIN SOD 40 MG/0.4 ML SYRINGE SC SCH (09:25)
[2020-02-26] MEDS: amLODIPine BESYLATE 5 MG TAB PO SCH (09:25)
[2020-02-26 13:00] VITALS: BP 113/64
[2020-02-26] MEDS: HYDROcodone-ACET 10/325MG TAB PO PRN ×2 (14:39→21:01)
[2020-02-26 16:27] VITALS: BP 117/69
--- NOTE | 2020-02-26 20:00 | NUR ---
Opening Shift Note Assumed care of patient, awake and alert. No S/S of distress/SOB or pain, bed locked in lowest position and call light within reach. Instructed on POC and to call for assist PRN, will continue to monitor for changes Q1hr and PRN.
--- NOTE | 2020-02-26 20:57 | NUR ---
CPM PT CURRENTLY ON CPM , EDUCATED REGARDING EQUIPMENT USE AND VERBALIZED UNDERSTANDING. CALL LIGHT WITHIN REACH
[2020-02-26 21:00] VITALS: BP 143/81
[2020-02-26] MEDS: ATORVASTATIN 20 MG TAB PO SCH (21:00)
--- NOTE | 2020-02-26 23:02 | NUR ---
CPM Patient taken off from CPM.
--- NOTE | 2020-02-26 23:20 | NUR ---
Respiratory note: PLACED PT ON CPAP UNIT RESP #3. PLUGGED IN RED OUTLET AND WATER FILLED TO ADEQUATE LEVEL. PT PLACED ON MEDIUM MASK. 3 L/M O2 BLEED-IN W/CONT POX AT BEDSIDE PER PROTOCOL. ALARMS AUDIBLE AND SET. PT IS NOT IN ANY DISTRESS AND TOLERATING CPAP WELL. WILL CONTINUE TO MONITOR. COMMUNICATED HEMANTH CAMPBELL ON PLACEMENT.
[2020-02-27] MEDS: HYDROcodone-ACET 10/325MG TAB PO PRN ×3 (00:52→08:54)
--- NOTE | 2020-02-27 01:40 | NUR ---
Respiratory note: AT BEDSIDE FOR ROUTINE CPAP CHECK. NO CHANGES MADE. PT SLEEPING AT THIS TIME. WILL CONTINUE TO MONITOR.
--- NOTE | 2020-02-27 03:06 | NUR ---
PATIENT AMBULATING TO THE RESTROOM WITH WALKER WITH STEADY GAIT.
[2020-02-27 05:00] VITALS: BP 126/71
[2020-02-27] MEDS: SUCRALFATE 1 GM/10 ML ORAL SUSP PO SCH ×2 (05:03→11:57)
[2020-02-27] MEDS: ONDANSETRON HCL 4 MG/2 ML VIAL IV PRN (05:04)
--- NOTE | 2020-02-27 05:09 | NUR ---
Patient ambulating around the nursing station with walker. No signs of distress noted.
[2020-02-27] MEDS: SODIUM CHLOR 0.9% PF (SALINE LOCK) 10ML VIAL/SYR IV SCH ×2 (05:26→15:56)
--- NOTE | 2020-02-27 07:00 | NUR ---
ENDORSED CARE TO FELICE SAXENA, PATIENT BE LOCKED IN LOWEST POSITION BED RAILS UP X2 WITH CALL LIGHT WITHIN REACH
--- NOTE | 2020-02-27 07:30 | NUR ---
Opening Shift Note Assumed care of patient, awake and alert. No S/S of distress/SOB. Bed is low, locked with 2x side rails up. Call light is within reach. Instructed on POC and to call for assist PRN, will continue to monitor for changes Q1hr and PRN.
--- NOTE | 2020-02-27 08:15 | NUR ---
Respiratory note: PT FOUND OFF CPAP AT THIS TIME. NO RESPIRATORY DISTRESS NOTED. SPO2 92% ON RA HR 72 RR 16.
[2020-02-27] MEDS: PANTOPRAZOLE 40 MG/10 ML VIAL INJ IV SCH (08:52)
[2020-02-27] MEDS: METOPROLOL SUCCINATE XL 50 MG TAB PO SCH (08:53)
[2020-02-27] MEDS: DOCUSATE SOD 100 MG CAP PO SCH (08:53)
[2020-02-27] MEDS: amLODIPine BESYLATE 5 MG TAB PO SCH (08:54)
[2020-02-27 09:00] VITALS: BP_SYST 135; BP_SYST 153; BP_DIAS 70; BP_DIAS 79
[2020-02-27] MEDS: AZILSARTAN MEDOXOMIL CHLORTHAL PO SCH (10:00)
[2020-02-27] MEDS: ENOXAPARIN SOD 40 MG/0.4 ML SYRINGE SC SCH (10:00)
--- NOTE | 2020-02-27 10:50 | NUR ---
Spoke to Sarita Spoke to Sarita from case management in regards to discharge planning. She informed this nurse that patient's insurance does not cover [facility] for PT. She stated that patient will need a referral for outpatient physical therapy. This nurse informed hospitalist on case Dr. Aguilera. Per Dr. Aguilera, he will input the order for outpatient physical therapy.
[2020-02-27] MEDS: traMADol HCL 50 MG TAB PO PRN (12:34)
--- NOTE | 2020-02-27 14:43 | NUR ---
Spoke to Hugh from This nurse informed Hugh from that Dr. Aguilera completed the outpatient physical therapy referral form. Per Hugh, patient can take referral and set up outpatient physical therapy services. Provided Iraida Short with a copy of the outpatient physical therapy referral form. Patient has original copy. Will proceed with discharge.
[2020-02-27 14:46] VITALS: BP 122/54
--- NOTE | 2020-02-27 15:45 | NUR ---
Discharge instructions given as ordered. Encourage to follow up with PMD as instructed. Provided patient with appointment information for both Dr. Huff and Dr. Ijeoma Quintanilla. All questions and concerns addressed. Patient verbalized understanding. IV removed with catheter intact, pressure dressing applied. Telemetry unit returned to ICU. Patient taken to vehicle via wheelchair with all personal belongings including walker and CPM machine, accompanied by staff. No distress noted at time of departure.
== END 2020-02-27 15:45 | disposition home or self-care (01) | DRG 470 ==
LOC: SUR 08:24 → CENTRAL 15:15 → TELE-CENTR 02-25 03:14
PROVIDERS: ADMIT Orthopaedic Surgery Adult Reconstructive Orthopaedic Surgery; ATTEND Internal Medicine
PROC: 0SRD0J9 Replacement of Left Knee Joint with Synthetic Substitute, Cemented, Open Approach (ICD-10-PCS; principal; 2020-02-24)
DX: M17.12 Unilateral primary osteoarthritis, left knee (principal); I10 Essential (primary) hypertension; E66.9 Obesity, unspecified; K21.9 Gastro-esophageal reflux disease without esophagitis; G47.30 Sleep apnea, unspecified; E78.5 Hyperlipidemia, unspecified; R10.9 Unspecified abdominal pain; Z96.652 Presence of left artificial knee joint; M19.90 Unspecified osteoarthritis, unspecified site; Z82.49 Family history of ischemic heart disease and other diseases of the circulatory system; Z68.37 Body mass index [BMI] 37.0-37.9, adult
CPT/HCPCS: 36415; 73560; 80053; 81001; 84484; 85014; 85018; 85025; 85610; 85730; 86850; 86900; 86901; 93306; 94660; C1713; C9113; G0378; J0131; J0690; J1100; J1885; J2250; J2405; J2704

== ENCOUNTER → 2020-03-06 | Outpatient (CLI) | payer BC | END | disposition home or self-care (01) | LOC: LAB 12:17 | PROVIDERS: ATTEND Urology | DX: D41.02 Neoplasm of uncertain behavior of left kidney (principal); R31.21 Asymptomatic microscopic hematuria | CPT/HCPCS: 36415; 82565; 84520 ==

== ENCOUNTER → 2020-07-26 | Outpatient (CLI) | payer BC | END | disposition home or self-care (01) | LOC: XYW 09:06 | PROVIDERS: ATTEND Family Medicine | DX: I67.82 Cerebral ischemia (principal); G93.0 Cerebral cysts | CPT/HCPCS: 70551 ==

== ENCOUNTER → 2020-09-10 | Outpatient (CLI) | payer BC ==
[2020-09-10 17:29] LABS: BUN/Creatinine Ratio 13.2; Calcium 8.9 mg/dL (8.5-10.1); Potassium 3.4 mmol/L (3.5-5.1)
== END | disposition home or self-care (01) ==
LOC: LAB 15:27
PROVIDERS: ATTEND Family Medicine
DX: Z01.812 Encounter for preprocedural laboratory examination (principal); D41.02 Neoplasm of uncertain behavior of left kidney
CPT/HCPCS: 36415; 80048

== ENCOUNTER → 2020-10-25 | Outpatient (CLI) | payer BC | END | disposition home or self-care (01) | LOC: LAB 11:49 | PROVIDERS: ATTEND Family Medicine | DX: C44.219 Basal cell carcinoma of skin of left ear and external auricular canal (principal) ==

== ENCOUNTER → 2020-10-29 | Outpatient (CLI) | payer BC | END | disposition home or self-care (01) | LOC: LAB 11:39 | PROVIDERS: ATTEND Family Medicine | DX: C44.1121 Basal cell carcinoma of skin of right upper eyelid, including canthus (principal) ==

== ENCOUNTER → 2020-12-07 | Outpatient (CLI) | payer BC ==
[2020-12-07 11:10] LABS: Basophils # (auto) 0.1 10 ^3/uL (0-0.2); Basophils % (auto) 2.7 % (0.0-2.0); Eosinophils # (auto) 0.1 10 ^3/uL (0-0.8); Eosinophils % (auto) 1.3 % (0.0-7.0); Hematocrit 47.3 % (41.0-53.0); Hemoglobin 16.3 g/dL (13.5-17.5); Lymphocytes # (auto) 1.3 10 ^3/uL (0.4-5.4); Lymphocytes % (auto) 27.1 % (10.0-50.0); Mean Corpuscular Hgb Conc. 34.4 g/dL (32.0-36.0); Mean Corpuscular Volume 84.3 fL (80.0-100.0); Monocytes # (auto) 0.3 10 ^3/uL (0-1.3); Monocytes % (auto) 5.5 % (0.0-12.0); Neutrophils # (auto) 3.1 10 ^3/uL (1.6-8.6); Neutrophils % (auto) 63.4 % (37.0-80.0); Nucleated Red Blood Cells % 0.1 %; Platelet Count (auto) 209 10^3/uL (140-450); Red Blood Cells 5.61 10^6/uL (4.5-5.90); Red Cell Distribution Width 14.4 % (11.8-14.3); White Blood Cell 4.9 10^3/uL (4.4-10.8)
[2020-12-07 12:03] LABS: Albumin 3.7 g/dL (3.4-5.0); Potassium 3.3 mmol/L (3.5-5.1)
[2020-12-07 12:06] LABS: BUN/Creatinine Ratio 16.5; Bilirubin, Total 0.5 mg/dL (0.2-1.0); Total Protein 7.5 g/dL (6.4-8.2)
== END | disposition home or self-care (01) ==
LOC: LAB 10:55
PROVIDERS: ATTEND Internal Medicine
DX: C44.1121 Basal cell carcinoma of skin of right upper eyelid, including canthus (principal); E78.5 Hyperlipidemia, unspecified; R73.9 Hyperglycemia, unspecified
CPT/HCPCS: 36415; 80053; 80061; 82306; 83036; 84443; 85025

== ENCOUNTER → 2020-12-11 | Outpatient (CLI) | payer BC | END | disposition home or self-care (01) | LOC: LAB 10:51 | PROVIDERS: ATTEND Internal Medicine | DX: E78.5 Hyperlipidemia, unspecified (principal); R73.9 Hyperglycemia, unspecified | CPT/HCPCS: 82274 ==

== ENCOUNTER → 2021-04-08 | Outpatient (CLI) | payer BC ==
[2021-04-08 17:01] LABS: Basophils # (auto) 0.1 10 ^3/uL (0-0.2); Basophils % (auto) 0.9 % (0.0-2.0); Eosinophils # (auto) 0.2 10 ^3/uL (0-0.8); Eosinophils % (auto) 2.6 % (0.0-7.0); Hematocrit 45.9 % (41.0-53.0); Hemoglobin 15.7 g/dL (13.5-17.5); Lymphocytes % (auto) 28.5 % (10.0-50.0); Mean Corpuscular Hemoglobin 29.3 pg (28.0-32.0); Mean Corpuscular Hgb Conc. 34.3 g/dL (32.0-36.0); Mean Corpuscular Volume 85.5 fL (80.0-100.0); Monocytes # (auto) 0.6 10 ^3/uL (0-1.3); Monocytes % (auto) 8.2 % (0.0-12.0); Neutrophils # (auto) 4.2 10 ^3/uL (1.6-8.6); Neutrophils % (auto) 59.8 % (37.0-80.0); Nucleated Red Blood Cells % 0.1 %; Red Blood Cells 5.36 10^6/uL (4.5-5.90); Red Cell Distribution Width 14.5 % (11.8-14.3)
[2021-04-08 17:17] LABS: INR 1.02 (0.9-1.15); Partial Thromboplastin Time 25.9 sec (23.6-33.0)
[2021-04-08 17:21] LABS: Albumin 3.7 g/dL (3.4-5.0); Calcium 9.1 mg/dL (8.5-10.1); Potassium 3.4 mmol/L (3.5-5.1)
[2021-04-08 17:25] LABS: BUN/Creatinine Ratio 13.2; Bilirubin, Total 0.4 mg/dL (0.2-1.0); Total Protein 7.9 g/dL (6.4-8.2)
== END | disposition home or self-care (01) ==
LOC: LAB 16:49
PROVIDERS: ATTEND Internal Medicine
DX: I10 Essential (primary) hypertension (principal)
CPT/HCPCS: 36415; 80053; 85025; 85610; 85730

== ENCOUNTER → 2021-04-16 | Day surgery (SDC) | payer BC ==
[~2021-04-16] VITALS: Ht 188 cm; Wt 117.9 kg
[~2021-04-16] MED LIST changes: +LIDOCAINE VISCOUS 2% 15ML UD ONE; +SODIUM CHLORIDE LOCK 10 ML ONE
[2021-04-16] MEDS: diphenhdrAMINE HCL 50 MG/1 ML VL ONE ×2 (13:26→13:29)
[2021-04-16] MEDS: fentaNYL CITRATE 100 MCG/2 ML VL ONE ×3 (13:26→13:32)
[2021-04-16] MEDS: MIDAZOLAM HCL 5 MG/ML-1ML VIAL ONE ×3 (13:26→13:32)
[2021-04-16 14:30] VITALS: BP 131/81
== END | disposition home or self-care (01) ==
LOC: GI 12:22
PROVIDERS: ATTEND Internal Medicine Gastroenterology
DX: K21.00 Gastro-esophageal reflux disease with esophagitis, without bleeding (principal); K44.9 Diaphragmatic hernia without obstruction or gangrene; K31.3 Pylorospasm, not elsewhere classified; K29.50 Unspecified chronic gastritis without bleeding; K31.89 Other diseases of stomach and duodenum; I10 Essential (primary) hypertension; E78.5 Hyperlipidemia, unspecified; G47.30 Sleep apnea, unspecified; Z96.652 Presence of left artificial knee joint; Z96.632 Presence of left artificial wrist joint; Z98.890 Other specified postprocedural states; Z79.899 Other long term (current) drug therapy; Z20.822 Contact with and (suspected) exposure to COVID-19; Z82.49 Family history of ischemic heart disease and other diseases of the circulatory system; Z83.42 Family history of familial hypercholesterolemia; Z82.61 Family history of arthritis; Z82.5 Family history of asthma and other chronic lower respiratory diseases; Z84.89 Family history of other specified conditions; Z81.8 Family history of other mental and behavioral disorders
CPT/HCPCS: 43239; 88305; 88342; J1200; J2250; J3010; J7030; U0003; 99152

== ENCOUNTER → 2021-09-16 | Outpatient (CLI) | payer BC ==
[~2021-09-16] MED LIST changes: -LIDOCAINE VISCOUS 2% 15ML UD ONE; -SODIUM CHLORIDE LOCK 10 ML ONE
== END | disposition home or self-care (01) ==
LOC: LAB 06:34
PROVIDERS: ATTEND Internal Medicine
DX: Z01.812 Encounter for preprocedural laboratory examination (principal)
CPT/HCPCS: 36415; 82565; 84520

== ENCOUNTER → 2021-10-15 | Day surgery (SDC) | payer BC ==
[2021-10-13 08:54] LABS: Basophils # (auto) 0 10 ^3/uL (0-0.2); Basophils % (auto) 0.5 % (0.0-2.0); Eosinophils # (auto) 0.1 10 ^3/uL (0-0.8); Eosinophils % (auto) 1.8 % (0.0-7.0); Hematocrit 45.9 % (41.0-53.0); Hemoglobin 15.7 g/dL (13.5-17.5); Lymphocytes # (auto) 1.4 10 ^3/uL (0.4-5.4); Lymphocytes % (auto) 27.6 % (10.0-50.0); Mean Corpuscular Hgb Conc. 34.1 g/dL (32.0-36.0); Mean Corpuscular Volume 85.2 fL (80.0-100.0); Monocytes # (auto) 0.3 10 ^3/uL (0-1.3); Monocytes % (auto) 6.5 % (0.0-12.0); Neutrophils # (auto) 3.3 10 ^3/uL (1.6-8.6); Neutrophils % (auto) 63.6 % (37.0-80.0); Nucleated Red Blood Cells % 0.4 %; Red Blood Cells 5.39 10^6/uL (4.5-5.90); Red Cell Distribution Width 14.4 % (11.8-14.3); White Blood Cell 5.2 10^3/uL (4.4-10.8)
[2021-10-13 09:02] LABS: Urine Bacteria NONE SEEN /hpf (None Seen); Urine Blood 1+ /uL (Negative); Urine Specific Gravity 1.021 (1.001-1.035); Urine WBC 1 /hpf (0 - 3)
[2021-10-13 09:08] LABS: INR 1.05 (0.9-1.15); Partial Thromboplastin Time 25.9 sec (23.6-33.0)
[2021-10-13 09:30] LABS: Albumin 3.7 g/dL (3.4-5.0); Potassium 3.6 mmol/L (3.5-5.1)
[2021-10-13 09:37] LABS: BUN/Creatinine Ratio 15.4; Bilirubin, Total 0.6 mg/dL (0.2-1.0); Calcium 9.1 mg/dL (8.5-10.1); Total Protein 7.5 g/dL (6.4-8.2)
[~2021-10-15] VITALS: Ht 188 cm; Wt 117.9 kg
[~2021-10-15] MED LIST changes: +LIDOCAINE 2% (LOCAL ANESTH.) PF 5ml SDV ONE; +LIDOCAINE VISCOUS 2% 15ML UD ONE; +MIDAZOLAM HCL 2MG/2ML 2ml VIAL (1mg/ml) ONE; +ONDANSETRON HCL 4 MG/2 ML VIAL IV PRN; +ONDANSETRON HCL 4 MG/2 ML VIAL ONE; +PROPOFOL 10 MG/ML 20 ML IV ONE; +fentaNYL CITRATE 100 MCG/2 ML VL ONE
[2021-10-15 16:45] VITALS: BP 142/94
== END | disposition home or self-care (01) ==
LOC: GI 12:46
PROVIDERS: ATTEND Internal Medicine Gastroenterology
DX: K21.9 Gastro-esophageal reflux disease without esophagitis (principal); K31.7 Polyp of stomach and duodenum; K31.89 Other diseases of stomach and duodenum; K29.50 Unspecified chronic gastritis without bleeding; I10 Essential (primary) hypertension; G47.30 Sleep apnea, unspecified; Z20.822 Contact with and (suspected) exposure to COVID-19; Z87.19 Personal history of other diseases of the digestive system; Z82.49 Family history of ischemic heart disease and other diseases of the circulatory system; Z81.8 Family history of other mental and behavioral disorders; Z82.61 Family history of arthritis
CPT/HCPCS: 36415; 43239; 80053; 81001; 85025; 85610; 85730; 88305; 88342; J2001; J2250; J2704; J3010; J7030; U0003; 99152; 99153; J2405

== ENCOUNTER → 2021-12-18 | Outpatient (CLI) | payer OTHER ==
[~2021-12-18] MED LIST changes: -LIDOCAINE 2% (LOCAL ANESTH.) PF 5ml SDV ONE; -LIDOCAINE VISCOUS 2% 15ML UD ONE; -MIDAZOLAM HCL 2MG/2ML 2ml VIAL (1mg/ml) ONE; -ONDANSETRON HCL 4 MG/2 ML VIAL IV PRN; -ONDANSETRON HCL 4 MG/2 ML VIAL ONE; -PROPOFOL 10 MG/ML 20 ML IV ONE; -fentaNYL CITRATE 100 MCG/2 ML VL ONE
== END | disposition home or self-care (01) ==
LOC: XYW 07:35
PROVIDERS: ATTEND Internal Medicine
DX: I50.32 Chronic diastolic (congestive) heart failure (principal)
CPT/HCPCS: 93306

== ENCOUNTER → 2022-01-05 | Outpatient (CLI) | payer OTHER ==
[~2022-01-05] VITALS: Ht 190.5 cm; Wt 117.9 kg
[~2022-01-05] MED LIST changes: +ADENOSINE 99 MG in GIVE UN-DILUTED 0 ML IV STA
== END | disposition home or self-care (01) ==
LOC: XYW 09:54
PROVIDERS: ATTEND Internal Medicine
DX: I10 Essential (primary) hypertension (principal); R06.02 Shortness of breath; I70.0 Atherosclerosis of aorta; I50.32 Chronic diastolic (congestive) heart failure; R06.00 Dyspnea, unspecified; R63.0 Anorexia; Z68.33 Body mass index [BMI] 33.0-33.9, adult
CPT/HCPCS: 78452; 93017; A9500; J0153

== ENCOUNTER → 2022-06-30 | Outpatient (CLI) | payer OTHER ==
[~2022-06-30] MED LIST changes: -ADENOSINE 99 MG in GIVE UN-DILUTED 0 ML IV STA
[2022-06-30 08:40] LABS: Urine Bacteria NONE SEEN /hpf (None Seen); Urine Blood 2+ /uL (Negative); Urine Specific Gravity 1.008 (1.001-1.035); Urine WBC <1 /hpf (0 - 3)
[2022-06-30 08:41] LABS: Basophils # (auto) 0 10 ^3/uL (0-0.2); Basophils % (auto) 0.5 % (0.0-2.0); Eosinophils # (auto) 0.1 10 ^3/uL (0-0.8); Eosinophils % (auto) 1.7 % (0.0-7.0); Hematocrit 45.9 % (41.0-53.0); Lymphocytes # (auto) 1.7 10 ^3/uL (0.4-5.4); Lymphocytes % (auto) 24.1 % (10.0-50.0); Mean Corpuscular Hemoglobin 29.2 pg (28.0-32.0); Mean Corpuscular Hgb Conc. 34.9 g/dL (32.0-36.0); Mean Corpuscular Volume 83.6 fL (80.0-100.0); Monocytes # (auto) 0.9 10 ^3/uL (0-1.3); Monocytes % (auto) 12.7 % (0.0-12.0); Neutrophils # (auto) 4.4 10 ^3/uL (1.6-8.6); Red Blood Cells 5.49 10^6/uL (4.5-5.90); Red Cell Distribution Width 14.1 % (11.8-14.3); White Blood Cell 7.2 10^3/uL (4.4-10.8)
[2022-06-30 09:16] LABS: Calcium 9.5 mg/dL (8.5-10.1); Potassium 3.2 mmol/L (3.5-5.1)
[2022-06-30 09:24] LABS: BUN/Creatinine Ratio 13.1; Bilirubin, Total 0.5 mg/dL (0.2-1.0); Total Protein 7.7 g/dL (6.4-8.2)
== END | disposition home or self-care (01) ==
LOC: LAB 08:13
PROVIDERS: ATTEND Student in an Organized Health Care Education/Training Program
DX: Z12.11 Encounter for screening for malignant neoplasm of colon (principal); I10 Essential (primary) hypertension; E78.5 Hyperlipidemia, unspecified; R73.9 Hyperglycemia, unspecified
CPT/HCPCS: 36415; 80053; 80061; 81001; 82274; 83036; 84439; 84443; 85025

== ENCOUNTER 2022-09-10 10:14 | Emergency (ER) | payer OTHER ==
[~2022-09-10] VITALS: Ht 33 cm; Wt 0.5 kg
[2022-09-10] MEDS ORDERED: ASPirin 325 MG TAB PO ONE (10:30)
[2022-09-10 10:42] LABS: Basophils # (auto) 0 10 ^3/uL (0-0.2); Basophils % (auto) 0.5 % (0.0-2.0); Eosinophils # (auto) 0.1 10 ^3/uL (0-0.8); Eosinophils % (auto) 1.6 % (0.0-7.0); Hematocrit 47.7 % (41.0-53.0); Hemoglobin 16.3 g/dL (13.5-17.5); Lymphocytes # (auto) 1.7 10 ^3/uL (0.4-5.4); Mean Corpuscular Hemoglobin 29.2 pg (28.0-32.0); Mean Corpuscular Hgb Conc. 34.2 g/dL (32.0-36.0); Mean Corpuscular Volume 85.5 fL (80.0-100.0); Monocytes # (auto) 0.4 10 ^3/uL (0-1.3); Monocytes % (auto) 7.9 % (0.0-12.0); Neutrophils # (auto) 2.9 10 ^3/uL (1.6-8.6); Nucleated Red Blood Cells % 0.3 %; Red Blood Cells 5.57 10^6/uL (4.5-5.90); Red Cell Distribution Width 14.6 % (11.8-14.3); White Blood Cell 5.1 10^3/uL (4.4-10.8)
[2022-09-10 10:57] LABS: Albumin 3.9 g/dL (3.4-5.0); Calcium 9.6 mg/dL (8.5-10.1); Potassium 3.8 mmol/L (3.5-5.1)
[2022-09-10 10:59] LABS: Bilirubin, Total 0.5 mg/dL (0.2-1.0); Total Protein 7.9 g/dL (6.4-8.2)
[2022-09-10] MEDS ORDERED: CYCL-837 PO (11:59)
[2022-09-10] MEDS ORDERED: KETOROLAC TROMETH 30 MG/ML 1ML VIAL IV ONE (12:00)
[2022-09-10] MEDS ORDERED: CYCLOBENZAPRINE HCL 10 MG TAB PO ONE (12:00)
[2022-09-10 13:06] VITALS: BP 138/91
== END 2022-09-10 13:12 | disposition home or self-care (01) ==
LOC: ER 10:14
DX: R07.89 Other chest pain (principal); M54.89 Other dorsalgia; M19.90 Unspecified osteoarthritis, unspecified site; K21.9 Gastro-esophageal reflux disease without esophagitis; E78.5 Hyperlipidemia, unspecified; I10 Essential (primary) hypertension; I25.2 Old myocardial infarction; Z88.1 Allergy status to other antibiotic agents; Z88.2 Allergy status to sulfonamides
CPT/HCPCS: 36415; 71045; 80053; 84484; 85025; 93005; 96374; 99285; J1885

== ENCOUNTER → 2022-10-13 | Outpatient (CLI) | payer OTHER ==
[~2022-10-13] MED LIST changes: +CYCL-837 PO
== END | disposition home or self-care (01) ==
LOC: LAB 14:45
PROVIDERS: ATTEND Internal Medicine
DX: Z01.812 Encounter for preprocedural laboratory examination (principal)
CPT/HCPCS: 36415; 82565; 84520

== ENCOUNTER → 2022-12-31 | Outpatient (CLI) | payer OTHER ==
[~2022-12-31] MED LIST changes: -SIMV-8 PO; +SIMV20TA20 PO
== END | disposition home or self-care (01) ==
LOC: LAB 13:01
PROVIDERS: ATTEND Urology
DX: N40.1 Benign prostatic hyperplasia with lower urinary tract symptoms (principal)
CPT/HCPCS: 84153

== ENCOUNTER 2023-04-22 07:50 | Day surgery (SDC) | payer OTHER ==
[2023-04-20 14:20] LABS: INR 1.08 (0.9-1.15); Partial Thromboplastin Time 26.8 SEC (24.5-34.5); Prothrombin Time 11.3 sec (9.3-11.8)
[2023-04-20 14:37] LABS: Basophils # (auto) 0 10 ^3/uL (0-0.2); Basophils % (auto) 0.4 % (0.0-2.0); Eosinophils # (auto) 0.2 10 ^3/uL (0-0.8); Eosinophils % (auto) 2.4 % (0.0-7.0); Hematocrit 45.8 % (41.0-53.0); Hemoglobin 15.8 g/dL (13.5-17.5); Lymphocytes % (auto) 25.7 % (10.0-50.0); Mean Corpuscular Hemoglobin 29.4 pg (28.0-32.0); Mean Corpuscular Hgb Conc. 34.5 g/dL (32.0-36.0); Mean Corpuscular Volume 85.3 fL (80.0-100.0); Monocytes # (auto) 0.5 10 ^3/uL (0-1.3); Monocytes % (auto) 7.2 % (0.0-12.0); Neutrophils # (auto) 4.9 10 ^3/uL (1.6-8.6); Neutrophils % (auto) 64.3 % (37.0-80.0); Nucleated Red Blood Cells % 0.2 %; Red Blood Cells 5.37 10^6/uL (4.5-5.90); Red Cell Distribution Width 14.3 % (11.8-14.3); White Blood Cell 7.6 10^3/uL (4.4-10.8)
[2023-04-20 14:40] LABS: Alanine Aminotransferase 32 U/L (7-40); Albumin 4.6 g/dL (3.2-4.8); Alkaline Phosphatase 52 U/L (46-116); Anion Gap 8 (5-15); Aspartate Aminotransferase 20 U/L (13-40); BUN/Creatinine Ratio 10.1 (10.0-20.0); Bilirubin, Total 0.6 mg/dL (0.2-1.0); Blood Urea Nitrogen 15 mg/dL (9-23); Calcium 10.2 mg/dL (8.5-10.1); Carbon Dioxide 30 mmol/L (20-30); Chloride 103 mmol/L (98-107); Glucose 103 mg/dL (74-106); Potassium 4.1 mmol/L (3.5-5.1); Sodium 141 mmol/L (136-145); Total Protein 7.6 g/dL (5.7-8.2)
[2023-04-20 15:01] LABS: Urine Bacteria NONE SEEN /hpf (None Seen); Urine Blood 2+ /uL (Negative); Urine Clarity Clear (Clear); Urine Color Yellow (Yellow); Urine Protein, UAD Negative (Negative); Urine Specific Gravity 1.018 (1.001-1.035); Urine Urobilinogen Normal (Negative); Urine WBC 2 /hpf (0 - 3)
[~2023-04-22] VITALS: Ht 190.5 cm; Wt 117.9 kg
[~2023-04-22 07:50] MED LIST changes: +ROSU1TAB14 PO; -SIMV20TA20 PO
[2023-04-22] MEDS ORDERED: DexAMETHasone SOD PHOS 10MG/1ML VIAL INJ ONE (08:47)
[2023-04-22] MEDS ORDERED: ONDANSETRON HCL 4 MG/2 ML VIAL ONE (08:47)
[2023-04-22] MEDS ORDERED: PROPOFOL 10 MG/ML 20 ML IV ONE ×3 (08:47→09:48)
[2023-04-22] MEDS ORDERED: KETOROLAC TROMETH 30 MG/ML 1ML VIAL ONE (08:47)
[2023-04-22] MEDS ORDERED: LIDOCAINE 2% (LOCAL ANESTH.) PF 5ml SDV ONE (08:47)
[2023-04-22] MEDS ORDERED: GLYCOPYRROLATE 0.2 MG/ML 1ML VIAL ONE (08:47)
[2023-04-22] MEDS ORDERED: CIPROFLOXACIN 400MG/200ML 200 ML IV ONE (08:53)
[2023-04-22] MEDS ORDERED: fentaNYL CITRATE 100 MCG/2 ML VL ONE (09:35)
[2023-04-22 10:14] VITALS: PULSE 49; RESP 13; TEMP 97.7; O2SAT 96
[2023-04-22 10:40] VITALS: O2SAT 97
[2023-04-22 10:55] VITALS: BP 107/65; PULSE 55; RESP 15
== END 2023-04-22 11:10 | disposition home or self-care (01) ==
LOC: SUR 07:50
PROVIDERS: ATTEND Urology
DX: N40.1 Benign prostatic hyperplasia with lower urinary tract symptoms (principal); N13.8 Other obstructive and reflux uropathy; R35.1 Nocturia; I10 Essential (primary) hypertension; E78.5 Hyperlipidemia, unspecified; Z79.899 Other long term (current) drug therapy; Z98.890 Other specified postprocedural states
CPT/HCPCS: 36415; 52441; 52442; 80053; 81001; 85025; 85610; 85730; 87086; J0744; J1100; J1885; J2001; J2405; J2704; J3010; L8699

== ENCOUNTER → 2023-05-03 | Outpatient (CLI) | payer OTHER ==
[2023-05-04 05:07] LABS: HSV 1 IgG Antibody 5.65 index (0.00-0.90); HSV 2 IgG Antibody <0.91 index (0.00-0.90)
== END | disposition home or self-care (01) ==
LOC: LAB 10:04
PROVIDERS: ATTEND Nurse Practitioner
DX: K12.30 Oral mucositis (ulcerative), unspecified (principal)
CPT/HCPCS: 86695; 86696

== ENCOUNTER → 2023-08-20 | Outpatient (CLI) | payer OTHER ==
[~2023-08-20] MED LIST changes: +IOHEXOL 300 MG/ML 100ML BOTTLE IJ ONE
[2023-08-20 10:50] LABS: Basophils # (auto) 0 10 ^3/uL (0-0.2); Basophils % (auto) 0.5 % (0.0-2.0); Eosinophils # (auto) 0.1 10 ^3/uL (0-0.8); Eosinophils % (auto) 1.1 % (0.0-7.0); Hematocrit 50.8 % (41.0-53.0); Hemoglobin 17.4 g/dL (13.5-17.5); Lymphocytes # (auto) 2.6 10 ^3/uL (0.4-5.4); Lymphocytes % (auto) 33.6 % (10.0-50.0); Mean Corpuscular Hemoglobin 29.5 pg (28.0-32.0); Mean Corpuscular Hgb Conc. 34.2 g/dL (32.0-36.0); Mean Corpuscular Volume 86.3 fL (80.0-100.0); Monocytes # (auto) 0.6 10 ^3/uL (0-1.3); Monocytes % (auto) 7.7 % (0.0-12.0); Neutrophils # (auto) 4.4 10 ^3/uL (1.6-8.6); Neutrophils % (auto) 57.1 % (37.0-80.0); Nucleated Red Blood Cells % 0.1 %; Red Blood Cells 5.89 10^6/uL (4.5-5.90); Red Cell Distribution Width 14.1 % (11.8-14.3); White Blood Cell 7.8 10^3/uL (4.4-10.8)
== END | disposition home or self-care (01) ==
LOC: LAB 10:31
PROVIDERS: ATTEND Urology
DX: R35.1 Nocturia (principal)
CPT/HCPCS: 36415; 82565; 84520; 85025; Q9967

== ENCOUNTER → 2023-11-26 | Outpatient (CLI) | payer OTHER ==
[~2023-11-26] MED LIST changes: -IOHEXOL 300 MG/ML 100ML BOTTLE IJ ONE; -ROSU1TAB14 PO; +ROSU20TA56 PO
[2023-11-26 09:28] LABS: Urine Bacteria None Seen /hpf (None Seen)
[2023-11-26 09:32] LABS: Basophils # (auto) 0 10 ^3/uL (0-0.2); Basophils % (auto) 0.6 % (0.0-2.0); Eosinophils # (auto) 0.1 10 ^3/uL (0-0.8); Eosinophils % (auto) 1.6 % (0.0-7.0); Lymphocytes # (auto) 1.9 10 ^3/uL (0.4-5.4); Lymphocytes % (auto) 36.7 % (10.0-50.0); Mean Corpuscular Hemoglobin 30.8 pg (28.0-32.0); Mean Corpuscular Hgb Conc. 35.6 g/dL (32.0-36.0); Mean Corpuscular Volume 86.5 fL (80.0-100.0); Monocytes # (auto) 0.5 10 ^3/uL (0-1.3); Neutrophils # (auto) 2.7 10 ^3/uL (1.6-8.6); Neutrophils % (auto) 52.1 % (37.0-80.0); Red Cell Distribution Width 14.6 % (11.8-14.3); White Blood Cell 5.1 10^3/uL (4.4-10.8)
[2023-11-26 09:39] LABS: Urine Blood 2+ /uL (Negative); Urine Clarity Clear (Clear); Urine Color Yellow (Yellow); Urine Protein, UAD Negative (Negative); Urine Urobilinogen Normal (Negative); Urine WBC 1 /hpf (0 - 3)
[2023-11-26 09:50] LABS: INR 1.09 (0.9-1.15); Partial Thromboplastin Time 26.5 SEC (24.5-34.5); Prothrombin Time 11.5 sec (9.3-11.8)
[2023-11-26 10:08] LABS: Alanine Aminotransferase 34 U/L (7-40); Albumin 4.4 g/dL (3.2-4.8); Alkaline Phosphatase 54 U/L (46-116); Anion Gap 2 (5-15); Aspartate Aminotransferase 21 U/L (13-40); BUN/Creatinine Ratio 11.4 (10.0-20.0); Blood Urea Nitrogen 14 mg/dL (9-23); Calcium 10.4 mg/dL (8.5-10.1); Carbon Dioxide 33 mmol/L (20-30); Chloride 106 mmol/L (98-107); Glucose 104 mg/dL (74-106); Potassium 3.8 mmol/L (3.5-5.1); Sodium 141 mmol/L (136-145)
[2023-11-26 10:09] LABS: Bilirubin, Total 0.7 mg/dL (0.2-1.0); Total Protein 7.2 g/dL (5.7-8.2)
== END | disposition home or self-care (01) ==
LOC: LAB 09:13
PROVIDERS: ATTEND Urology
DX: N28.89 Other specified disorders of kidney and ureter (principal)
CPT/HCPCS: 36415; 80053; 81001; 85025; 85610; 85730; 87086

== ENCOUNTER → 2023-11-30 | Outpatient (CLI) | payer OTHER ==
[~2023-11-30] MED LIST changes: +MIDAZOLAM HCL 2MG/2ML 2ml VIAL (1mg/ml) IV ONE; +MIDAZOLAM HCL 2MG/2ML 2ml VIAL (1mg/ml) ONE; +fentaNYL CITRATE 100 MCG/2 ML VL IV ONE; +fentaNYL CITRATE 100 MCG/2 ML VL ONE
== END | disposition home or self-care (01) ==
LOC: XYW 08:30
PROVIDERS: ATTEND Urology
DX: N28.89 Other specified disorders of kidney and ureter (principal); C64.2 Malignant neoplasm of left kidney, except renal pelvis; G47.30 Sleep apnea, unspecified; Z82.61 Family history of arthritis; Z83.3 Family history of diabetes mellitus; Z82.49 Family history of ischemic heart disease and other diseases of the circulatory system; Z79.899 Other long term (current) drug therapy; Z98.890 Other specified postprocedural states; Z88.2 Allergy status to sulfonamides
CPT/HCPCS: 50200; 74150; 76942; 77012; 88305; 88342; J2250; J3010; 10005

== ENCOUNTER → 2024-01-06 | Outpatient (CLI) | payer OTHER ==
[~2024-01-06] MED LIST changes: -MIDAZOLAM HCL 2MG/2ML 2ml VIAL (1mg/ml) IV ONE; -MIDAZOLAM HCL 2MG/2ML 2ml VIAL (1mg/ml) ONE; -fentaNYL CITRATE 100 MCG/2 ML VL IV ONE; -fentaNYL CITRATE 100 MCG/2 ML VL ONE
[2024-01-06 10:45] LABS: Triglycerides 233 mg/dL (< 150)
[2024-01-06 10:46] LABS: Cholesterol 144 mg/dL (< 200); HDL Cholesterol 35 mg/dL (40-59); LDL Cholesterol 77 mg/dL (< 100)
== END | disposition home or self-care (01) ==
LOC: LAB 09:34
PROVIDERS: ATTEND Student in an Organized Health Care Education/Training Program
DX: Z12.11 Encounter for screening for malignant neoplasm of colon (principal); I10 Essential (primary) hypertension; E78.5 Hyperlipidemia, unspecified
CPT/HCPCS: 36415; 80061

== ENCOUNTER → 2024-01-11 | Outpatient (CLI) | payer OTHER | END | disposition home or self-care (01) | LOC: LAB 07:44 | PROVIDERS: ATTEND Student in an Organized Health Care Education/Training Program | DX: Z12.11 Encounter for screening for malignant neoplasm of colon (principal); E78.5 Hyperlipidemia, unspecified; I10 Essential (primary) hypertension | CPT/HCPCS: 82274 ==

== ENCOUNTER → 2024-02-23 | Outpatient (CLI) | payer OTHER ==
[2024-02-23] VITALS (7 sets, daily range): BP systolic 117–148; BP diastolic 66–102; PULSE 53–58; RESP 12–19; TEMP 98.3; O2SAT 93–95
[~2024-02-23] VITALS: Ht 190.5 cm; Wt 113.4 kg
[~2024-02-23] MED LIST changes: +HYDROcodone-ACET 5/325MG TAB ONE; +MIDAZOLAM HCL 2MG/2ML 2ml VIAL (1mg/ml) ONE; +ONDANSETRON HCL 4 MG/2 ML VIAL ONE; +fentaNYL CITRATE 100 MCG/2 ML VL ONE
[2024-02-23 07:44] LABS: Basophils # (auto) 0 10 ^3/uL (0-0.2); Basophils % (auto) 0.5 % (0.0-2.0); Eosinophils # (auto) 0.1 10 ^3/uL (0-0.8); Eosinophils % (auto) 2.3 % (0.0-7.0); Hematocrit 48.2 % (41.0-53.0); Hemoglobin 16.8 g/dL (13.5-17.5); Lymphocytes # (auto) 2.5 10 ^3/uL (0.4-5.4); Lymphocytes % (auto) 38.4 % (10.0-50.0); Mean Corpuscular Hemoglobin 29.9 pg (28.0-32.0); Mean Corpuscular Hgb Conc. 34.8 g/dL (32.0-36.0); Monocytes # (auto) 0.6 10 ^3/uL (0-1.3); Monocytes % (auto) 9.3 % (0.0-12.0); Neutrophils # (auto) 3.2 10 ^3/uL (1.6-8.6); Neutrophils % (auto) 49.5 % (37.0-80.0); Nucleated Red Blood Cells % 0.1 %; Platelet Count (auto) 216 10^3/uL (140-450); Red Blood Cells 5.61 10^6/uL (4.5-5.90); Red Cell Distribution Width 14.5 % (11.8-14.3); White Blood Cell 6.5 10^3/uL (4.4-10.8)
[2024-02-23 08:03] LABS: INR 1.06 (0.9-1.15); Partial Thromboplastin Time 26.2 SEC (24.5-34.5); Prothrombin Time 11.4 sec (9.3-11.8)
[2024-02-23] MEDS: MIDAZOLAM HCL 2MG/2ML 2ml VIAL (1mg/ml) IV ONE (08:15)
[2024-02-23] MEDS: fentaNYL CITRATE 100 MCG/2 ML VL IV ONE (08:15)
[2024-02-23] MEDS: LIDOCAINE 2%HCL (LOCAL ANESTH.) INJ 10ml MDV ONE (09:18)
[2024-02-23] MEDS: ONDANSETRON HCL 4 MG/2 ML VIAL IM ONE (12:11)
[2024-02-23] MEDS: HYDROcodone-ACET 5/325MG TAB PO ONE (12:17)
--- NOTE | 2024-02-23 14:28 | DVH ---
CT PAR TISSUE ABLATION, HISTORY: RENAL MASS PROCEDURE: Informed consent was previously obtained in clinic. The patient was placed in pronepositio n. An initial limited noncontrast CT scan of the abdomen was obtained for localization purposes. The entry site was prepped with chlorhexidine which was allowed to dry and draped in the usual sterile fa shion. Time out was performed. IV sedation was administered. 2% lidocaine was used for local anesthet ic. With US/CT guidance, the lesion was then accessed with 3 R2.4/IceForce probes. The cryoprobes w ere then connected to the cryoablation machine, and two freeze-thaw cycles were performed with interm ittent CT scans obtained to monitor progress. The probes were removed. Completion CT demonstrated sma ll stable retroperitoneal hematoma, but otherwise no evidence of immediate complication. DLP = 3036 mGy-cm. SEDATION: Dr. Ho Pham was personally responsible for the administration of moderate sedation during the procedure performed, including the use of an independent trained observer who had no other duties during the procedure. The drugs utilized were IV fentanyl and versed (see nursing log for details). The total time of supervision by the attending physician was approximately 90 minutes. FINDINGS: 3.8 x 3.3 cm left mid renal pole solid mass is identified. CT images reveal the iceball to encompass the mass lesion with adequate margin. A small stable post-procedural hematoma is noted. IMPRESSION: US/CT-guided cryoablation of left middle renal pole mass. PLAN: Bedrest for 4 hours. Follow-up contrast enhanced CT would be reasonable in about 1-3 months to assess for viability or lack thereof.
--- NOTE | 2024-02-23 14:56 | DVH ---
Exam: CT CT AB PEL WO CON-NO ORAL OR IV History: ABD PAIN Comparison Study: CT abdomen and pelvis 08/20/2023 and 02/23/2024 Technique: Multidetector CT of the abdomen and pelvis without contrast. Axial, coronal and sagittal m ultiplanar reformats were performed by the technologist on a separate workstation. Radiation Dose Information: CT Dose: CTDI volume is 23.93 mGy. Dose-length product is 1472.69 mGy*cm Findings: Bibasilar atelectasis/ scarring. Partially visualized heart is unremarkable. Liver, spleen, gallbladder, pancreas and adrenal glands are unremarkable. Subcentimeter exophytic right renal upper pole lesion that is too small to characterize. 1.2 cm exoph ytic right medial renal lower pole cyst. The 3 x 3.5 by 3.9 cm left posterior renal mass appears heterogeneous on current study with adjacent retroperitoneal fat stranding which is most likely associated worrisome procedure. No renal calculi o r hydronephrosis bilaterally. Urinary bladder is unremarkable. Enlarged prostate with prosthetic see ding. Stomach is unremarkable. Small bowel loops unremarkable. Appendix is unremarkable. Sigmoid diverticu losis without diverticulitis. Minimal wall thickening of the ascending colon, transverse colon and de scending colon which may be due to inadequate distention. No evidence of intraperitoneal free air. No evidence of aortic aneurysm. Mild atherosclerotic calcification of the aorta and bilateral iliacs . No significant lymphadenopathy. Small fat containing right inguinal hernia. There is mild muscle edema adjacent to the area of the po sterior kidney with fat stranding. No destructive osseous lesions are noted. Sclerotic focus over th e left acetabular roof which may represent a bone island. IMPRESSION: Redemonstration of 3 x 3.5 x 3.9 cm left posterior renal mass which appears heterogeneous on current study with adjacent stranding which is most likely related to recent procedure. Enlarged prostate with prostatic seeding. Mild wall thickening of the ascending colon, transverse colon and descending colon which may be due t o inadequate distention with mild colitis not excluded. Sigmoid diverticulosis without diverticulitis. Additional findings as above.
== END | disposition home or self-care (01) ==
LOC: XYW 07:48
PROVIDERS: ATTEND Urology
DX: C64.2 Malignant neoplasm of left kidney, except renal pelvis (principal); N20.0 Calculus of kidney; N40.0 Benign prostatic hyperplasia without lower urinary tract symptoms; K57.30 Diverticulosis of large intestine without perforation or abscess without bleeding
CPT/HCPCS: 36415; 50593; 74176; 77013; 85025; 85610; 85730; C2618; J2001; J2250; J2405; J3010; 74150; 76775; 76942

== ENCOUNTER → 2024-04-11 | Outpatient (CLI) | payer OTHER ==
[~2024-04-11] MED LIST changes: -HYDROcodone-ACET 5/325MG TAB ONE; -MIDAZOLAM HCL 2MG/2ML 2ml VIAL (1mg/ml) ONE; -ONDANSETRON HCL 4 MG/2 ML VIAL ONE; -fentaNYL CITRATE 100 MCG/2 ML VL ONE
[2024-04-11 11:23] LABS: Urine Bacteria None Seen /hpf (None Seen)
[2024-04-11 12:25] LABS: Urine Blood 2+ /uL (Negative); Urine Clarity Clear (Clear); Urine Color Yellow (Yellow); Urine Protein, UAD Negative (Negative); Urine Specific Gravity 1.019 (1.001-1.035); Urine Urobilinogen Normal (Negative); Urine WBC 2 /hpf (0 - 3); Urine pH 5.5 (5.0-9.0)
[2024-04-11 12:31] LABS: Alanine Aminotransferase 29 U/L (7-40); Albumin 4.5 g/dL (3.2-4.8); Alkaline Phosphatase 58 U/L (46-116); Anion Gap 6 (5-15); Aspartate Aminotransferase 18 U/L (13-40); BUN/Creatinine Ratio 8.5 (10.0-20.0); Blood Urea Nitrogen 11 mg/dL (9-23); Calcium 10.7 mg/dL (8.7-10.4); Carbon Dioxide 28 mmol/L (20-31); Chloride 106 mmol/L (98-107); Glucose 108 mg/dL (74-106); Potassium 3.6 mmol/L (3.5-5.1); Sodium 140 mmol/L (136-145)
[2024-04-11 12:32] LABS: Bilirubin, Total 0.6 mg/dL (0.2-1.0); Total Protein 7.8 g/dL (5.7-8.2)
[2024-04-11 12:34] LABS: Creatinine, Urine 147.82 mg/dL (30.0-125.0)
== END | disposition home or self-care (01) ==
LOC: LAB 11:05
PROVIDERS: ATTEND Internal Medicine
DX: N40.0 Benign prostatic hyperplasia without lower urinary tract symptoms (principal); E78.5 Hyperlipidemia, unspecified; N18.31 Chronic kidney disease, stage 3a; R73.03 Prediabetes
CPT/HCPCS: 36415; 80053; 81001; 82043; 82306; 82570; 82607; 83036; 84443

== ENCOUNTER → 2024-04-14 | Outpatient (CLI) | payer OTHER | END | disposition home or self-care (01) | LOC: LAB 09:16 | PROVIDERS: ATTEND Internal Medicine | DX: E83.52 Hypercalcemia (principal) | CPT/HCPCS: 36415; 82310; 83970 ==

== ENCOUNTER → 2024-04-17 | Outpatient (CLI) | payer OTHER ==
[2024-04-17 11:56] LABS: Alanine Aminotransferase 28 U/L (7-40); Albumin 4.3 g/dL (3.2-4.8); Alkaline Phosphatase 54 U/L (46-116); Anion Gap 7 (5-15); Aspartate Aminotransferase 17 U/L (13-40); BUN/Creatinine Ratio 12.8 (10.0-20.0); Bilirubin, Direct 0.2 mg/dL (<0.3); Bilirubin, Total 0.6 mg/dL (0.2-1.0); Blood Urea Nitrogen 18 mg/dL (9-23); Calcium 10.4 mg/dL (8.7-10.4); Carbon Dioxide 28 mmol/L (20-31); Chloride 107 mmol/L (98-107); Glucose 99 mg/dL (74-106); Potassium 3.5 mmol/L (3.5-5.1); Sodium 142 mmol/L (136-145); Total Protein 7.2 g/dL (5.7-8.2)
== END | disposition home or self-care (01) ==
LOC: LAB 10:43
PROVIDERS: ATTEND Urology
DX: N40.1 Benign prostatic hyperplasia with lower urinary tract symptoms (principal)
CPT/HCPCS: 36415; 80048; 80076

== ENCOUNTER → 2024-07-18 | Outpatient (CLI) | payer OTHER ==
--- NOTE | 2024-07-18 13:35 | DVH ---
EXAM: NM PARATHYROID DATE OF SERVICE: 07/18/2024 09:10 AM ADORE MARCELINO REASON FOR EXAM: HYPERPARATHYROIDISM UNSPECIFIED TECHNIQUE: Following the intravenous administration of 20 mCi of Tc-99m Sestamibi, planar images at 15 minutes and 2 hours were obtained from the vertex to the chest. COMPARISON: None FINDINGS: 15 minutes post injection, the thyroid gland demonstrates diffuse, homogeneous uptake. 3 hours post injection, there is incomplete washout of radiotracer from the thyroid gland with mild d iffuse uptake in the inferior left thyroid lobe. There is focal residual uptake in the inferior right thyroid lobe. IMPRESSION: 1. Focal residual uptake in the inferior right thyroid lobe may reflect a parathyroid adenoma.
== END | disposition home or self-care (01) ==
LOC: XY 07:10
PROVIDERS: ATTEND Internal Medicine
DX: E21.3 Hyperparathyroidism, unspecified (principal)
CPT/HCPCS: 78070; A9500

== ENCOUNTER → 2024-08-14 | Outpatient (CLI) | payer OTHER ==
[2024-08-14 12:53] LABS: Anion Gap 8 (5-15); Carbon Dioxide 30 mmol/L (20-31); Chloride 102 mmol/L (98-107); Potassium 4.2 mmol/L (3.5-5.1); Sodium 140 mmol/L (136-145)
[2024-08-14 12:57] LABS: Calcium 10.8 mg/dL (8.7-10.4)
[2024-08-14 12:59] LABS: BUN/Creatinine Ratio 13.7 (10.0-20.0); Blood Urea Nitrogen 18 mg/dL (9-23); Glucose 98 mg/dL (74-106)
== END | disposition home or self-care (01) ==
LOC: LAB 11:38
PROVIDERS: ATTEND Internal Medicine Gastroenterology
DX: K21.9 Gastro-esophageal reflux disease without esophagitis (principal)
CPT/HCPCS: 36415; 80048; 82941

== ENCOUNTER 2024-09-28 07:16 | Day surgery (SDC) | payer OTHER ==
[2024-09-26 10:59] LABS: Basophils # (auto) 0 10 ^3/uL (0-0.2); Basophils % (auto) 0.5 % (0.0-2.0); Eosinophils # (auto) 0.2 10 ^3/uL (0-0.8); Eosinophils % (auto) 3.5 % (0.0-7.0); Hematocrit 45.3 % (41.0-53.0); Hemoglobin 15.1 g/dL (13.5-17.5); Lymphocytes # (auto) 1.6 10 ^3/uL (0.4-5.4); Lymphocytes % (auto) 35.3 % (10.0-50.0); Mean Corpuscular Hemoglobin 28.8 pg (28.0-32.0); Mean Corpuscular Hgb Conc. 33.4 g/dL (32.0-36.0); Mean Corpuscular Volume 86.4 fL (80.0-100.0); Monocytes # (auto) 0.4 10 ^3/uL (0-1.3); Monocytes % (auto) 9.4 % (0.0-12.0); Neutrophils # (auto) 2.3 10 ^3/uL (1.6-8.6); Neutrophils % (auto) 51.3 % (37.0-80.0); Nucleated Red Blood Cells % 0.1 %; Platelet Count (auto) 200 10^3/uL (140-450); Red Blood Cells 5.24 10^6/uL (4.5-5.90); Red Cell Distribution Width 14.7 % (11.8-14.3); White Blood Cell 4.5 10^3/uL (4.4-10.8)
[2024-09-26 11:11] LABS: Urine Bacteria FEW /hpf (None Seen); Urine Blood TRACE /uL (Negative); Urine Clarity Clear (Clear); Urine Color Yellow (Yellow); Urine Mucus FEW (None Seen); Urine Protein, UAD Negative (Negative); Urine Specific Gravity 1.019 (1.001-1.035); Urine Squamous Epithelial Cell FEW /hpf (<5); Urine Urobilinogen Normal (Negative); Urine WBC 2 /HPF (0-3); Urine pH 6.5 (5.0-9.0)
[2024-09-26 11:17] LABS: INR 1.03 (0.9-1.15); Partial Thromboplastin Time 25.4 SEC (24.5-34.5); Prothrombin Time 10.9 sec (9.3-11.8)
[2024-09-26 11:18] LABS: Alanine Aminotransferase 29 U/L (7-40); Albumin 4.6 g/dL (3.2-4.8); Alkaline Phosphatase 58 U/L (46-116); Anion Gap 6 (5-15); Aspartate Aminotransferase 19 U/L (13-40); BUN/Creatinine Ratio 13.9 (10.0-20.0); Blood Urea Nitrogen 17 mg/dL (9-23); Carbon Dioxide 29 mmol/L (20-31); Chloride 104 mmol/L (98-107); Potassium 3.8 mmol/L (3.5-5.1); Sodium 139 mmol/L (136-145); Total Protein 7.3 g/dL (5.7-8.2)
[2024-09-26 11:19] LABS: Bilirubin, Total 0.5 mg/dL (0.2-1.0)
[2024-09-26 11:20] LABS: Calcium 10.4 mg/dL (8.7-10.4); Glucose 115 mg/dL (74-106)
[~2024-09-28] VITALS: Ht 190.5 cm; Wt 117.9 kg
[~2024-09-28 07:16] MED LIST changes: -CYCL-837 PO; +FAMO-68 PO; +FINA5TAB4 PO; -PANT40TA2 PO
[2024-09-28] MEDS ORDERED: ceFAZolin 1GM VL IV ONE (07:17)
[2024-09-28] MEDS ORDERED: fentaNYL CITRATE 100 MCG/2 ML VL ONE (09:46)
[2024-09-28] MEDS ORDERED: ePHEDrine SULFATE 50 MG/ML AMP ONE (10:04)
[2024-09-28] MEDS ORDERED: ONDANSETRON HCL 4 MG/2 ML VIAL ONE (10:06)
[2024-09-28] MEDS ORDERED: DexAMETHasone SOD PHOS 10MG/1ML VIAL INJ ONE (10:06)
[2024-09-28] MEDS: BUPIVACAINE 0.5% P/F INJ 10 ML VIAL ONE (10:13)
[2024-09-28] MEDS: LIDOCAINE 1%-Mpf/Epinephrine 1:200,000 30ml VIAL ONE (10:13)
[2024-09-28] MEDS: ceFAZolin 2 GM/D5W50ml 50 ML IV ONE (10:15)
[2024-09-28] MEDS ORDERED: POVIDONE IODINE 10 % TOPICAL OINT 30GM TOP ONE (10:26)
[2024-09-28 10:35] VITALS: PULSE 60; RESP 13; TEMP 97.5; O2SAT 94
[2024-09-28] MEDS ORDERED: HYDROmorphone HCL 2 MG/ML VL/or syr IV PRN (10:45)
[2024-09-28] MEDS ORDERED: ONDANSETRON HCL 4 MG/2 ML VIAL IV ONE (10:45)
[2024-09-28] MEDS ORDERED: MEPERIDINE HCL (25 MG/ML) 1ML VIAL IV PRN (10:45)
[2024-09-28] MEDS ORDERED: ACETAMINOPHEN IV 1000 MG/100ML (10MG/ML) IV PRN (10:45)
[2024-09-28 11:00] VITALS: PULSE 57; RESP 13; O2SAT 96
[2024-09-28 11:20] VITALS: BP 132/95; PULSE 63; RESP 12; O2SAT 95
--- NOTE | 2024-09-28 21:10 | DVHOP2 ---
Operative Report - 2 Report Details Date: 09/28/24 Preop Diagnosis: upper back lesion Postop Diagnosis: right upper back lesion Surgeon: Moises Renee MD Filer Repairer: Bernie Morfin Anesthesiologist: Dr. Lee Anesthesia: General Consent: The patient was informed of the risks and benefits of the procedure. These include but are not limited to complications of anesthesia, postoperative infection, incomplete relief of symptoms, recurrence of symptoms, damage to blood vessels, nerves and tendons, deep venous thrombosis, pulmonary embolism and possible need for repeat surgery in the future. Name of Procedure Performed excision of upper back lesion Procedure Details Procedure Details: The patient was taken into the operating room, placed in left lateral position.. General anesthetic was administered. A prophylactic dose of Ancef was given. The patient was prepped and draped in a usual manner. The procedure began by infiltrating lidocaine with epinephrine around the lesion. Then, I proceeded with the help of a 15C blade to make an elliptical incision and remove a small wedge of tissue. The incision was done superiorly then inferiorly to a full thickness and to the skin. Hemostasis was achieved with electrocautery. The wound was closed with 0 Prolene vertical mattress stitches. Bentadine ointment was applied and Telfa , 4x4 dressing applied. The patient tolerated the procedur e well without complications and transferred to recovery room in stable condition. I was present and participated in all aspects of the procedure. Sponge, needle, and instrument counts were completed at the end of the procedure. Specimen: tissue marked with nylon suture 12 o'clock short suture, 3 o'clock long suture Condition Good Disposition Home BERNIE MORFIN MAPPER Sep 28, 2024 21:10
== END 2024-09-28 11:30 | disposition home or self-care (01) ==
LOC: SUR 07:16
PROVIDERS: ATTEND Surgery
DX: R22.2 Localized swelling, mass and lump, trunk (principal); C43.59 Malignant melanoma of other part of trunk; I11.0 Hypertensive heart disease with heart failure; I50.30 Unspecified diastolic (congestive) heart failure; N40.0 Benign prostatic hyperplasia without lower urinary tract symptoms; E78.2 Mixed hyperlipidemia; K21.9 Gastro-esophageal reflux disease without esophagitis; G47.33 Obstructive sleep apnea (adult) (pediatric); M19.90 Unspecified osteoarthritis, unspecified site; E66.89 Other obesity not elsewhere classified; Z68.32 Body mass index [BMI] 32.0-32.9, adult; Z86.0100 Personal history of colon polyps, unspecified; Z96.652 Presence of left artificial knee joint
CPT/HCPCS: 11403; 36415; 80053; 81001; 85025; 85610; 85730; 88305; J0690; J1100; J2004; J2405; J2704; J3010; J3490

== ENCOUNTER 2025-02-12 14:26 | Outpatient (CLI) | payer OTHER ==
[2025-02-12 15:16] LABS: Chloride 104 mmol/L (98-107); Potassium 3.6 mmol/L (3.5-5.1); Sodium 141 mmol/L (136-145)
[2025-02-12 15:17] LABS: Anion Gap 9 (5-15); Calcium 10.1 mg/dL (8.7-10.4); Carbon Dioxide 28 mmol/L (20-31)
[2025-02-12 15:22] LABS: BUN/Creatinine Ratio 10.8 (10.0-20.0); Blood Urea Nitrogen 16 mg/dL (9-23); Glucose 105 mg/dL (74-106)
== END 2025-02-12 17:00 | disposition home or self-care (01) ==
LOC: LAB 14:26
PROVIDERS: ATTEND Internal Medicine Gastroenterology
DX: K21.9 Gastro-esophageal reflux disease without esophagitis (principal)
CPT/HCPCS: 36415; 80048

== ENCOUNTER → 2025-03-23 | Outpatient (CLI) | payer OTHER ==
[2025-03-23 09:34] LABS: Hematocrit 46.8 % (41.0-53.0); Hemoglobin 16.0 g/dL (13.5-17.5); Mean Corpuscular Hemoglobin 29.3 pg (28.0-32.0); Mean Corpuscular Volume 85.4 fL (80.0-100.0); Nucleated Red Blood Cells % 0.1 %
[2025-03-23 10:11] LABS: Alanine Aminotransferase 38 U/L (7-40); Albumin 4.4 g/dL (3.2-4.8); Alkaline Phosphatase 48 U/L (46-116); Anion Gap 10 (5-15); BUN/Creatinine Ratio 8.2 (10.0-20.0); Blood Urea Nitrogen 12 mg/dL (9-23); Calcium 10.3 mg/dL (8.7-10.4); Carbon Dioxide 28 mmol/L (20-31); Chloride 103 mmol/L (98-107); Cholesterol 157 mg/dL (< 200); Glucose 99 mg/dL (74-106); HDL Cholesterol 40 mg/dL (40-59); Potassium 4.0 mmol/L (3.5-5.1); Sodium 141 mmol/L (136-145); Total Protein 7.7 g/dL (5.7-8.2); Triglycerides 172 mg/dL (< 150)
[2025-03-23 10:12] LABS: Bilirubin, Total 0.5 mg/dL (0.2-1.0)
== END | disposition home or self-care (01) ==
LOC: LAB 09:03
PROVIDERS: ATTEND Internal Medicine
DX: N40.0 Benign prostatic hyperplasia without lower urinary tract symptoms (principal); I12.9 Hypertensive chronic kidney disease with stage 1 through stage 4 chronic kidney disease, or unspecified chronic kidney disease; N18.2 Chronic kidney disease, stage 2 (mild); Z12.11 Encounter for screening for malignant neoplasm of colon; Z79.899 Other long term (current) drug therapy
CPT/HCPCS: 36415; 80053; 80061; 82306; 83036; 83615; 83970; 84100; 84153; 85025

== ENCOUNTER → 2025-04-11 | Outpatient (CLI) | payer OTHER ==
[2025-04-11 13:04] LABS: Chloride 103 mmol/L (98-107); Sodium 143 mmol/L (136-145)
[2025-04-11 13:05] LABS: Anion Gap 12 (5-15); Carbon Dioxide 28 mmol/L (20-31)
[2025-04-11 13:10] LABS: BUN/Creatinine Ratio 10.3 (10.0-20.0); Blood Urea Nitrogen 16 mg/dL (9-23); Glucose 92 mg/dL (74-106)
[2025-04-11 13:43] LABS: Calcium 10.4 mg/dL (8.7-10.4); Potassium 3.4 mmol/L (3.5-5.1)
== END | disposition home or self-care (01) ==
LOC: LAB 11:34
PROVIDERS: ATTEND Internal Medicine
DX: N18.31 Chronic kidney disease, stage 3a (principal)
CPT/HCPCS: 36415; 80048

== ENCOUNTER 2025-04-16 11:08 | Day surgery (SDC) | payer OTHER ==
[2025-04-11 12:27] LABS: Hematocrit 47.5 % (41.0-53.0); Hemoglobin 16.4 g/dL (13.5-17.5); Mean Corpuscular Hemoglobin 29.3 pg (28.0-32.0); Mean Corpuscular Volume 85.1 fL (80.0-100.0); Nucleated Red Blood Cells % 0.1 %
[2025-04-11 12:28] LABS: INR 1.03 (0.9-1.15); Partial Thromboplastin Time 23.9 SEC (24.5-34.5); Prothrombin Time 10.9 sec (9.3-11.8)
[2025-04-11 12:36] LABS: Urine Protein, UAD Negative (Negative)
[2025-04-11 13:13] LABS: Alanine Aminotransferase 29 U/L (7-40); Albumin 4.5 g/dL (3.2-4.8); Alkaline Phosphatase 47 U/L (46-116); Anion Gap 12 (5-15); BUN/Creatinine Ratio 10.4 (10.0-20.0); Bilirubin, Total 0.6 mg/dL (0.2-1.0); Blood Urea Nitrogen 16 mg/dL (9-23); Calcium 10.3 mg/dL (8.7-10.4); Carbon Dioxide 28 mmol/L (20-31); Chloride 103 mmol/L (98-107); Glucose 91 mg/dL (74-106); Sodium 143 mmol/L (136-145); Total Protein 7.8 g/dL (5.7-8.2)
[2025-04-11 13:52] LABS: Potassium 3.4 mmol/L (3.5-5.1)
[~2025-04-16] VITALS: Ht 190.5 cm; Wt 117.9 kg
[2025-04-16] MEDS ORDERED: fentaNYL CITRATE 100 MCG/2 ML VL ONE (12:28)
[2025-04-16] MEDS ORDERED: LIDOCAINE 2% (LOCAL ANESTH.) PF 5ml SDV ONE (12:29)
[2025-04-16] MEDS ORDERED: PROPOFOL 10 MG/ML 20 ML IV ONE (12:29)
[2025-04-16] MEDS ORDERED: MIDAZOLAM HCL 2MG/2ML 2ml VIAL (1mg/ml) ONE (12:29)
[2025-04-16] MEDS ORDERED: GLYCOPYRROLATE 0.2 MG/ML 1ML VIAL ONE (12:29)
[2025-04-16 13:04] VITALS: PULSE 47; RESP 10; TEMP 97.1; O2SAT 97
--- NOTE | 2025-04-16 13:30 | DVHOP2 ---
Operative Report DATE OF OPERATION: 04/16/25 PROCEDURE: Upper Endoscopy with biopsy. PREOPERATIVE INDICATION: The patient is a 69 -year-old male undergoing endoscopy for chronic GERD history of inflammatory polyp at EG junction POSTOPERATIVE DIAGNOSES: 1. 3 cm sliding-type hiatal hernia with an inflammatory fold between the six and 8 o'clock position with a superficial tiny polyp and inflammation from which biopsies were obtained 2. Grade a erosive esophagitis at the GE junction and slightly irregular squamocolumnar junction 3. Nixr-po-jxococyv gastritis and gastropathy more prominent in the proximal stomach 4. Qlrc-ic-zqoanjxu duodenitis with hyperemia erythema and superficial erosions from which biopsies were obtained PROCEDURE PERFORMED BY: Tani Chu GI NURSE: Alyse SCOPE: Olympus videoendoscope. ASA CLASS: 3 PREOPERATIVE MEDICATIONS: Derrick camarena, Dr. Nick PROCEDURE IN DETAIL: After obtaining an informed consent, the patient was placed on left lateral decubitus position. The patient was then sedated with the above medications. A bite block was placed between his teeth. The endoscope was then passed through the oropharynx, into the esophagus, and through the stomach and pylorus up to the second and third part of the duodenum. The endoscope was then withdrawn. The 2nd and 3rd part of the duodenal showed moderate duodenitis with some hyperemia and superficial erosions and duodenal biopsies were obtained The pre-pyloric area antrum and body showed mild gastritis and there appeared to be some hypertrophic gastritis of the proximal stomach with edema hyperemia from which biopsies were obtained On retroflexion the fundus cardia and angularis were otherwise normal. The endoscope was then withdrawn into distal esophagus. Patient had a 3 cm sliding- type hiatal hernia Slightly irregular squamocolumnar junction with grade a erosive esophagitis. There was a prominent inflamed fold again noted between the 6 and 8 o'clock position with a superficial polyp of the gastric mucosa which was removed and multiple biopsies were obtained along with the EG junction. Two tiny gastric polyps were also seen and removed via cold biopsy forceps The remaining distal and proximal esophagus and oropharynx were unremarkable The patient tolerated the procedure well without difficulty. COMPLICATIONS : None SPECIMENS: Duodenal biopsies Gastric biopsies Gastric polyps x2 Biopsy at GE junction and inflamed fold within the hiatal hernia sac with superficial polyp DISPOSITION: Stable D/C to home PLAN: 1. Await for biopsy result 2. Will place pt on Protonix 40 mg bid 3. Carafate 1 g p.o. twice a day 4. DC aspirin NSAIDs smoking alcohol 5. Trial of Voquenza in my office 6. If patient continues to be symptomatic consider Georges fundoplication TANI CHU MD Apr 16, 2025 13:30
[2025-04-16 13:34] VITALS: BP 104/61; PULSE 46; RESP 13; O2SAT 92
== END 2025-04-16 13:54 | disposition home or self-care (01) ==
LOC: GI 11:08
PROVIDERS: ATTEND Internal Medicine Gastroenterology
DX: K21.9 Gastro-esophageal reflux disease without esophagitis (principal); K29.50 Unspecified chronic gastritis without bleeding; K31.7 Polyp of stomach and duodenum; K22.10 Ulcer of esophagus without bleeding; K29.80 Duodenitis without bleeding; K44.9 Diaphragmatic hernia without obstruction or gangrene; K31.89 Other diseases of stomach and duodenum; I11.0 Hypertensive heart disease with heart failure; I50.32 Chronic diastolic (congestive) heart failure; I45.10 Unspecified right bundle-branch block; N40.0 Benign prostatic hyperplasia without lower urinary tract symptoms; E78.00 Pure hypercholesterolemia, unspecified; G89.29 Other chronic pain; G47.33 Obstructive sleep apnea (adult) (pediatric); E66.09 Other obesity due to excess calories; Z68.31 Body mass index [BMI] 31.0-31.9, adult; Z79.899 Other long term (current) drug therapy; Z96.652 Presence of left artificial knee joint; Z98.890 Other specified postprocedural states; Z88.2 Allergy status to sulfonamides; Z80.8 Family history of malignant neoplasm of other organs or systems; Z81.1 Family history of alcohol abuse and dependence; Z82.5 Family history of asthma and other chronic lower respiratory diseases; Z80.6 Family history of leukemia
CPT/HCPCS: 36415; 43239; 80053; 81001; 85025; 85610; 85730; 88302; 88305; 88313; 88341; 88342; J2003; J2250; J2704; J3010; J7030

== ENCOUNTER 2025-04-24 10:00 | Outpatient (CLI) | payer OTHER ==
[2025-04-24 10:51] LABS: Chloride 106 mmol/L (98-107); Sodium 139 mmol/L (136-145)
[2025-04-24 10:52] LABS: Anion Gap 10 (5-15); Carbon Dioxide 23 mmol/L (20-31)
[2025-04-24 10:53] LABS: Calcium 10.1 mg/dL (8.7-10.4)
[2025-04-24 10:56] LABS: Potassium 4.4 mmol/L (3.5-5.1)
[2025-04-24 10:58] LABS: BUN/Creatinine Ratio 6.0 (10.0-20.0)
[2025-04-24 10:59] LABS: Blood Urea Nitrogen 10 mg/dL (9-23); Glucose 123 mg/dL (74-106)
== END 2025-04-24 17:00 | disposition home or self-care (01) ==
LOC: LAB 10:00
PROVIDERS: ATTEND Internal Medicine
DX: E87.6 Hypokalemia (principal)
CPT/HCPCS: 36415; 80048